=== PATIENT | female | born 1955 | race Caucasian/White ===

== ENCOUNTER 2018-02-01 05:35 | Day surgery (SDC) | payer BC ==
[~2018-02-01 05:35] MED LIST: Buffered Lidocaine 0.9% SYRIN* 5 ML/SYR SYRINGE INTRADERM ONE; Ondansetron TAB* 4 MG PO ONE
[2018-02-01] MEDS ORDERED: Naloxone* 0.4 MG/ML 1 ML VIAL IV PRN (05:45)
[2018-02-01] MEDS ORDERED: Morphine VIAL* 4 MG/ML VIAL (1 ml vial) IV PRN (05:45)
[2018-02-01] MEDS ORDERED: DiMENhydriNATE IV* 50 MG/ML VIAL IV PUSH PRN (05:45)
[2018-02-01] MEDS ORDERED: Levalbuterol 0.63MG/3ML NEB* UNIT OF USE INH PRN (05:45)
[2018-02-01] MEDS ORDERED: Acetaminophen IV 1GM/100ML * 1,000 MG/100 ML VIAL IVPB ONE (05:45)
[2018-02-01] MEDS ORDERED: PROCHLORPERAZINE INJ 5 MG/ML 2 ML VIAL IV PRN (05:45)
[2018-02-01] MEDS ORDERED: fentaNYL* 50 MCG/ML 2 ML VIAL (100 MCG VIAL) IV PRN (05:45)
[2018-02-01] MEDS ORDERED: Famotidine IV* 10 MG/ML 2 ML (20 mg) IV ONE (06:00)
[2018-02-01] MEDS ORDERED: Dexamethasone IV* 4 MG/ML 1 ML (4 MG) IV SLOW PU ONE (06:00)
[2018-02-01] MEDS ORDERED: Lactated Ringers 1000 ML Bag* 1,000 ML IV SCH (06:00)
[2018-02-01] MEDS ORDERED: Levalbuterol 0.63MG/3ML NEB* UNIT OF USE INH ONE ×2 (06:00→06:10)
[2018-02-01] MEDS ORDERED: Famotidine IV* 10 MG/ML 2 ML (20 mg) ONE (06:09)
[2018-02-01] MEDS ORDERED: Dexamethasone IV* 4 MG/ML 1 ML (4 MG) ONE (06:09)
[2018-02-01] MEDS ORDERED: Ondansetron ODT TAB* 4 MG ONE (06:09)
[2018-02-01] MEDS ORDERED: Acetaminophen IV 1GM/100ML * 100 ML ONE (06:10)
[2018-02-01] MEDS ORDERED: Lidocaine 1% INJ* 10 MG/ML 30 ML SDV ONE (07:01)
[2018-02-01] MEDS ORDERED: Bupivacaine 0.25% SDV PF* 10 ML VIAL INJ ONE (07:01)
[2018-02-01] MEDS ORDERED: fentaNYL* 50 MCG/ML 5 ML VIAL (250 MCG VIAL) ONE (07:16)
[2018-02-01] MEDS ORDERED: KETAMINE HCL* 50 MG/ML 10 ML VIAL ONE (07:17)
[2018-02-01] MEDS ORDERED: Midazolam* 1 MG/ML 5 ML VIAL (5 MG) ONE (07:17)
[2018-02-01] MEDS ORDERED: Atracurium* 10 MG/ML 10 ML VIAL ONE (07:17)
[2018-02-01] MEDS ORDERED: Propofol* 10 MG/ML 20 ML BTL ONE (07:57)
[2018-02-01] MEDS ORDERED: Lidocaine 2% PF * 5 ML VIAL ONE (07:57)
[2018-02-01] MEDS ORDERED: Succinylcholine* 20 MG/ML 10 ML VIAL ONE (07:57)
[2018-02-01] MEDS ORDERED: Phenylephrine INJ* 10 MG/ML 1 ML VIAL (10 MG) ONE (07:58)
[2018-02-01] MEDS ORDERED: Lidocaine 2% PF* 10 ML AMP ONE (07:58)
[2018-02-01] MEDS ORDERED: Morphine VIAL* 10 MG/ML 1 ML VIAL ONE (09:26)
[2018-02-01] MEDS ORDERED: PROCHLORPERAZINE INJ 5 MG/ML 2 ML VIAL ONE (09:28)
--- NOTE | 2018-02-01 14:46 | OP ---
OPERATIVE REPORT: DATE OF OPERATION: 02/01/18 - [facility] DATE OF : 53 SERVICE: General Surgery. SURGEON: Tamara Lr MD. HAND KISS SETTER: Lela Garcia MD. ANESTHESIOLOGIST: Dr. Hays. ANESTHESIA: General endotracheal anesthesia. PRE-OP DIAGNOSIS: Papillary thyroid cancer, left POST-OP DIAGNOSIS: Papillary thyroid carcinoma, left OPERATIVE PROCEDURE: Total thyroidectomy ESTIMATED BLOOD LOSS: 10 cc. INDICATIONS: Ms. Piña 62-year-old female with a history of hypothyroidism, who on routine ultrasound was found to have a suspicious appearing left thyroid nodule. This was biopsied and confirmed to be papillary thyroid carcinoma and therefore she presented for a total thyroidectomy. She understood the risks, benefits, and alternatives of the procedure and she wished to proceed. DESCRIPTION OF PROCEDURE: The patient was brought back to the operating room and placed on the operating table in supine position. Venodyne boots were placed in the bilateral lower extremities for DVT prophylaxis. General endotracheal anesthesia was induced. The patient's neck was extended into the sniffing position using a pressure bag underneath her shoulders and all pressure points were padded and her arms were rucked. Her neck was prepped and draped in normal sterile fashion. Local anesthesia with a mixture of 1% lidocaine and 0.25% Marcaine was administered to the neck and a time-out was performed, verifying the patient's name, MR number, and the procedure to be performed. The NIMs monitor was also connected for nerve monitoring. An approximately 4.5 cm midline neck incision was made 2 fingerbreadths above the sternal notch in a natural crease line in the neck. The skin was divided down to the subcutaneous tissue and then the platysmal was divided. Next, inferior and superior subplatysmal flaps were developed, and once this was done, a retractor was placed for exposure and the midline median raphe was identified and divided all the way down to the isthmus of the thyroid. Once this was done , the midline was opened up further using a LigaSure, and then once the isthmus was exposed, it was divided down the middle and flushed on the right side after dissecting it both superiorly and inferiorly. Once this was done, the left thyroid lobe, the side with the cancer, was approached. The thyroid lobe was rotated laterally. Attachments to the trachea medially were divided and then the strap muscles were retracted off of the thyroid lobe. The space lateral to the left thyroid lobe was developed, and then with great care the superior pole vessels were divided using 2-0 silk ties and LigaSure. Once this was done, the thyroid lobe was fairly mobile and able to be pulled up and out of the neck. The left recurrent laryngeal nerve was identified visually and also with nerve monitor. Its entire path was dissected out, and then after this was confirmed, the left thyroid lobe was removed off of the trachea using the LigaSure. The superior and inferior parathyroids were also identified on the left side. The thyroid lobe was then taken away in specimen with a stitch malcolm in the upper lobe. Next, attention was turned towards to the right thyroid lobe. In a similar fashion, the medial attachments to the trachea were divided and space of Reeve's was developed. Superior pole was taken down using a combination of LigaSure and 2-0 silk ties, and then once this was done, the thyroid lobe was pulled up and out. The middle thyroid vein was identified and divided. The right recurrent laryngeal nerve was also identified and it was dissected out. It was noted to be very close to the tubercle, and with great care, the tubercle and the thyroid was dissected off of the recurrent laryngeal nerve and off of the trachea, and it was carried off the table as specimen with stitch malcolm to the upper pole of the right thyroid lobe. Of note the left thyroid lobe was palpated and had the nodule with cancer in it. The superior and inferior parathyroid was also identified on the right side during the dissection. Finally, inspection of the right and left neck spaces after Valsalva noted that there was no bleeding and 10 cc of Tisseel was placed into the neck spaces. The strap muscles were reapproximated using 3-0 Vicryl sutures , the platysma was reapproximated using 3-0 Vicryl sutures, and the skin was closed using a running 4-0 Prolene suture. Sterile dressing was also placed and the patient's anesthesia was reversed, and she was taken to the PACU in stable condition. At the end of the case, all counts were correct and I was present during the entirety of the case. [id number]/[facility] #: [id number] MONIQUE
[2018-02-01 16:25] VITALS: BP 117/61
== END 2018-02-01 16:26 | disposition home or self-care (01) ==
LOC: OR 05:35
PROVIDERS: ATTEND Surgery
DX: C73 Malignant neoplasm of thyroid gland (principal); G47.33 Obstructive sleep apnea (adult) (pediatric); J45.909 Unspecified asthma, uncomplicated; Z87.891 Personal history of nicotine dependence; K21.9 Gastro-esophageal reflux disease without esophagitis; M19.90 Unspecified osteoarthritis, unspecified site; E03.9 Hypothyroidism, unspecified
CPT/HCPCS: 88307; A9270-GY; J0330; J0780; J1100; J2001; J2250; J2270; J2704; J3010; J3490

== ENCOUNTER 2018-04-25 05:29 | Day surgery (SDC) | payer BC ==
--- NOTE | 2018-04-16 03:22 | HP ---
HISTORY AND PHYSICAL: DATE OF ADMISSION/SURGERY: 04/25/18 DATE OF OFFICE VISIT: 04/15/18 SURGEON: Sue Watts MD * (DICTATED BY ARAVIND GALINDO) PROCEDURE: Left knee arthroscopy with partial meniscectomy, possible chondroplasty, possible synovectomy. CHIEF COMPLAINT: Left knee pain. HISTORY OF PRESENT ILLNESS: Ms. Piña is a 63-year-old female with complaints of left knee pain. An MRI confirms a meniscus tear and she has elected to proceed with surgery. PAST MEDICAL HISTORY: Hypothyroidism, history of thyroid cancer, asthma, GERD, and sleep apnea. PAST SURGICAL HISTORY: Thyroidectomy, tubal ligation, tonsillectomy, adenoidectomy, and D and C. CURRENT MEDICATIONS: 1. [place] 5/325 as needed. 2. Symbicort. 3. Xopenex as needed. 4. Omeprazole 20 mg a day as needed. 5. Vitamin D3. 6. Patanol eye drops. 7. Tramadol 50 mg as needed. 8. Progesterone 100 mg q.h.s. 9. Estradiol 0.25 mg daily. 10. Xyzal daily. 11. Flonase as needed. 12. Calcium. 13. Tylenol. 14. Multivitamin. 15. Flexeril 10 mg as needed. 16. Levothyroxine 137 mcg a day. ALLERGIES: IBUPROFEN. FAMILY HISTORY: Coronary artery disease, peripheral vascular disease, aortic aneurysm, emphysema, and AFib. SOCIAL HISTORY: She is a 63-year-old female. She lives with her . She does not smoke or use drugs. Uses alcohol rarely. REVIEW OF SYSTEMS: A complete 14-point review of systems was reviewed with the patient. It was positive for history of thyroid cancer with total thyroidectomy and asthma. She denies history of DVT, PE, hepatitis, HIV, or anesthesia problems. PHYSICAL EXAMINATION GENERAL: She is well developed, well nourished, in no acute distress. VITAL SIGNS: She stands 65 inches tall, weighs 207 pounds. Her blood pressure is 130/80, her heart rate is 76. HEENT: Normocephalic, atraumatic. NECK: Supple. No palpable lymph nodes. PULMONARY: The lungs are clear to auscultation bilaterally. CARDIO: Regular rate and rhythm. Strong S1, S2. ABDOMEN: Soft, nontender, nondistended. NEUROLOGICAL: She is alert and oriented x3. MUSCULOSKELETAL: Left lower extremity: The skin is intact. There are no open wounds or abrasions. There is a dlsv-av-tghjjaks joint effusion of the left knee, some tenderness over the medial and lateral joint line. Positive Martinez 's, positive Apley's. Negative Rafaela. Her calf is soft and nontender. She is able to dorsiflex and plantarflex and has a 2+ dorsalis pedis pulse. ASSESSMENT AND PLAN: Ms. Piña is a 63-year-old female with complaints of left knee pain. She has elected to proceed with left knee arthroscopy with partial meniscectomy, possible chondroplasty, possible synovectomy. The surgery is scheduled for 04/25/[address] Watts discussed the risks and benefits of the surgery at today's visit and all of her questions were answered. She will follow up with Dr. Watts in 2 weeks after the surgery. ARAVIND GALINDO [id number]/[facility] #: [id number] MTDD
[~2018-04-25 05:29] MED LIST changes: -Buffered Lidocaine 0.9% SYRIN* 5 ML/SYR SYRINGE INTRADERM ONE; +Buffered Lidocaine 1% SYRIN* 1 ML/SYRINGE INTRADERM ONE; -Ondansetron TAB* 4 MG PO ONE
[2018-04-25] MEDS ORDERED: Lactated Ringers 1000 ML Bag* 1,000 ML IV SCH (06:00)
[2018-04-25] MEDS ORDERED: ceFAZolin 2 GM in NS PREMIX(*) 2 GM/100 ML BAG IVPB ONE (06:02)
[2018-04-25] MEDS ORDERED: EPINEPHRINE 1 MG/ML 1 ML VIAL ONE (06:44)
[2018-04-25] MEDS ORDERED: ROPIVACAINE 5 MG/ML 30 ML BTL (0.5%) ONE (06:44)
[2018-04-25] MEDS ORDERED: methylPREDNISolone ACETATE 80* 80 MG/ML 1 ML VIAL ONE (06:44)
[2018-04-25] MEDS ORDERED: Lidocaine 2% PF * 5 ML VIAL ONE (06:54)
[2018-04-25] MEDS ORDERED: Propofol* 10 MG/ML 20 ML BTL ONE (06:54)
[2018-04-25] MEDS ORDERED: Midazolam* 1 MG/ML 2 ML VIAL (2 MG) ONE (07:09)
[2018-04-25] MEDS ORDERED: fentaNYL* 50 MCG/ML 2 ML VIAL (100 MCG VIAL) ONE ×2 (07:10→08:32)
[2018-04-25] MEDS ORDERED: Dexamethasone IV* 4 MG/ML 1 ML (4 MG) ONE (07:30)
[2018-04-25] MEDS ORDERED: Metoclopramide IV* 5 MG/ML 2 ML VIAL ONE (07:30)
[2018-04-25] MEDS ORDERED: Ondansetron INJ* 2 MG/ML VIAL ONE (07:30)
[2018-04-25] MEDS ORDERED: DiMENhydriNATE IV* 50 MG/ML VIAL IV PUSH PRN (07:42)
[2018-04-25] MEDS ORDERED: fentaNYL* 50 MCG/ML 2 ML VIAL (100 MCG VIAL) IV PRN (07:42)
[2018-04-25] MEDS ORDERED: Acetaminophen TAB* 325 MG PO PRN (07:42)
[2018-04-25] MEDS ORDERED: oxyCODONE TAB* 5 MG TAB PO PRN (07:42)
[2018-04-25] MEDS ORDERED: Naloxone* 0.4 MG/ML 1 ML VIAL IV PRN (07:42)
[2018-04-25] MEDS ORDERED: EPHEDrine (Pressors)* 50 MG/ML VIAL ONE (07:51)
[2018-04-25 10:04] VITALS: BP 128/78
--- NOTE | 2018-04-25 20:56 | OP ---
DATE OF OPERATION: 04/25/18 - [facility] DATE OF : 53 ATTENDING SURGEON: Sue Watts MD SILVICULTURE FORESTER: ARAVIND Morrison. Ms. Mistry did help throughout the procedure with preparation of the leg, wound retraction, manipulation of the knee, and wound closure. ANESTHESIOLOGIST: Dr. Roberts. ANESTHESIA: General. PRE-OP DIAGNOSIS: Left knee medial meniscal tear, mild to moderate degenerative changes. POST-OP DIAGNOSIS: Left knee medial meniscal tear, anterior synovitis, mild to moderate osteoarthritic changes. OPERATIVE PROCEDURE: Left knee arthroscopy with partial medial meniscectomy and anterior synovectomy. ESTIMATED BLOOD LOSS: Less than 25 cc. COMPLICATIONS: None. SPECIMENS: None. BRIEF HISTORY/INDICATIONS: Ms. Piña is a 63-year-old female who developed medial joint line pain and mechanical symptoms. She failed conservative treatment. An MRI confirmed the medial meniscal tear. She did have known arthritic changes. Due to continued pain and decreased quality of life, she elected to undergo left knee arthroscopy. Informed consent was obtained from the patient. She understood the risks of surgery included, but were not limited to, bleeding, infection, damage to nearby structures, continued pain, need for further surgery, re-tear of the meniscus, progression of arthritis, stroke, heart attack, blood clot, and . She wished to proceed. INTRAOPERATIVE FINDINGS: Intraoperatively, the patient was noted to have a linear tear of the medial meniscus in the white-red zone. This involved the posterior third of the medial meniscus. She was noted to have some grade 2 and 3 Outerbridge cartilage changes in the patellofemoral and medial compartment. She had a significant amount of anterior synovitis. DESCRIPTION OF PROCEDURE: Ms. Piña was identified in the preanesthesia unit. Her left lower extremity was marked as the correct operative side. Informed consent was signed and placed in the chart. The patient was taken to the operating room and placed under anesthesia. Left lower extremity was prepped and draped in the usual sterile fashion. Preop time-out was made to correctly identify the patient, side, and site. Appropriate perioperative antibiotics were given within 1 hour of incision. A one-half standard anterolateral portal incision was made with a 10 blade and carried down to the capsule. Trocar was introduced. As soon as the light and water sources were turned on, there was immediate visualization of the supra- patellar pouch. A tour of the knee joint was performed. Suprapatellar pouch had no obvious abnormality. Patellofemoral compartment showed some grade 2 and 3 Outerbridge cartilage changes. Medial compartment showed no loose body or plica. Anterior joint line had significant synovitis, which did impinge along the patellofemoral joint with range of motion. Medial compartment showed some grade 2 and 3 Outerbridge cartilage changes of the medial femoral condyle. There was an obvious medial meniscal tear with some displacement into the joint space along the posteromedial meniscus. ACL and PCL appeared to be intact. The knee was placed in a [id number] position. No obvious lateral meniscal tear was noted. Minimal lateral joint space degenerative changes were noted. Lateral gutters showed no abnormality or loose body. Under direct visualization, a medial portal incision was made with a 10 blade. A probe was introduced and a second tour of the knee joint was performed. No additional findings were noted. A shaver and radiofrequency ablation wand were used to perform anterior synovectomy. The inflamed tissue was carefully removed. Next, the shaver and straight biter were used to perform partial medial meniscectomy. A smooth border of the medial meniscus was obtained in the white-red zone. Further probing of the medial meniscus showed no additional tears. Radiofrequency ablation wand was used to further smooth the edge of the meniscus. The knee was copiously irrigated with sterile saline. All instruments were removed. Incisions were closed using 3-0 nylon suture. Intraarticular injection of 80 mg Depo-Medrol and 4 cc of 1% lidocaine was placed in the knee joint. Sterile Xeroform, 4x4s, and Webril were used to cover the incision. Henry wrap and cold pack were placed over this. The patient's anesthesia was reversed without difficulty. She was taken to the PACU in stable condition. Intended weightbearing will be weightbearing as tolerated with aspirin daily. [id number]/[facility] #: [id number] [facility]ITAL[facility]
== END 2018-04-25 10:00 | disposition home or self-care (01) ==
LOC: OR 05:29
PROVIDERS: ATTEND Orthopaedic Surgery Adult Reconstructive Orthopaedic Surgery
DX: S83.242A Other tear of medial meniscus, current injury, left knee, initial encounter (principal); M65.862 Other synovitis and tenosynovitis, left lower leg; M17.12 Unilateral primary osteoarthritis, left knee; J45.909 Unspecified asthma, uncomplicated; E03.9 Hypothyroidism, unspecified; X58.XXXA Exposure to other specified factors, initial encounter; Y92.9 Unspecified place or not applicable
CPT/HCPCS: J0690; J1040; J1100; J2250; J2405; J2704; J2765; J2795; J3010

== ENCOUNTER 2018-05-24 17:50 | Emergency (ER) | payer BC ==
--- OUTSIDE RECORDS SUMMARY | 2018-05-24 17:58 | XMS REPORT | Continuity of Care Document ---
:1955 External Reference #:[id number] Author Name Soren Koo Care Team Providers Name Role Phone Jelly Helms MD Primary Care Physician Unavailable Payers Date Identification Numbers Payment Provider Subscriber Effective: Policy Number: [id number] [employer] Edy Piña 2018 PayID: [id number] [address] [address] [place] [address] Effective: 2015 Policy Number: [id number] [employer] Edy Piña Expires: 2018 PayID: [id number] [address] [address] [place] [address] Effective: 2013 Policy Number: [id number] [employer] Marshall Piña PayID: [id number] [address] [address] [address] Expires: 2015 Policy Number: [id number] [employer] Ppo Edy Piña PayID: [id number] [address] [address] [place] [address] Effective: 2010 Policy Number: [id number] [employer] Edy Rafael Piña Expires: 2014 PayID: [id number] [address] [facility] [place] [address] Effective: 2012 Policy Number: [id number] [employer] Edy Piña Expires: 2013 PayID: [id number] [address] [address] [place] [address] Advance Directives Description No Information Available Problems Date Description Provider Status Onset: 08/04/2010 Pure hypercholesterolemia Collette Sindy, M.D., FACP Active Onset: 12/11/2011 Gastroesophageal reflux disease Rosa M Engel N.Christo Active Onset: 02/04/2014 Obstructive sleep apnea syndrome Jerrica Enriquez MD Active Onset: 02/04/2014 Allergic rhinitis Jerrica Enriquez MD Active Onset: 02/04/2014 Intrinsic asthma without status Jerrica Enriquez MD Active asthmaticus Onset: 08/31/2014 Obesity Jerrica Enriquez MD Active Onset: 01/21/2016 Mild persistent asthma Renata Miller.Christo Active Onset: 04/08/2018 Localized, primary osteoarthritis Sue Watts M.D. Active Onset: 04/15/2018 Current tear of medial cartilage Sue Watts M.D. Active AND/OR meniscus of knee Family History Date Family Member(s) Observation Comments General Heart Disease General Hypertension General Cancer General Atrial Fibrillation Father GERD Esophageal stricture, Heart valve disease, Cardiac aortic aneurysm, valve replacement Mother Depression Hx unknown Siblings 4 2 Sisters - 1 with pulmonary alveolar proteinosis, 1 with A Fib, PTSD, Depression and anxiety, OA hips sand Spine 2 Brothers - Healthy Several half siblings - One with HTN, DM (smoker), Depression Siblings sister does not have Ra but does have deformed hand joints Social History Type Date Description Comments Sex Unknown Marital Status 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 Smokeless Tobacco Never Used Smokeless Tobacco ETOH Use Rarely consumes alcohol Tobacco Use Start: Unknown End: Patient is a former started in 1969, Unknown smoker quit 1975 social smoker Recreational Drug Use Denies Drug Use Smoking Status Reviewed: 05/06/18 Patient is a former started in 1969, smoker quit 1975 social smoker Exercise Type/Frequency Exercises sporadically Allergies, Adverse Reactions, Alerts Date Description Reaction Status Severity Comments 12/03/2009 wheat Active 12/03/2009 Milk-related Compounds Active 12/03/2009 Yeast-related Active 04/08/2018 Ginko Biloba Active 04/08/2018 Ibuprofen Active Medications Medication Date Status Form Strength Qnty SIG Indications Ordering Provider Aspirin 04/[address] 325mg 28tab take 1 by s mouth twice Mac, a day for M.D. two weeks Spacer For 12/11 Active 2unit Use with J01.90 Rosa M Inhaler /2017 s inhaler Varn, N.P. Symbicort 11/22 Active Aerosol 160-4.5mc 18gm 2 puffs by J01.90 g/Act mouth twice Varn, N.P. a day Vitamin D3 High 01/14 Active Capsules 1000Unit 2 po qd Varn, N.P. Omeprazole 03/[address] 20mg 30cap Take one s capsule by Varn, N.P. mouth every day Patanol 12/11 Active Solution 0.1% 5unit instill one H10.30 s drop in Varn, N.P. both eyes once daily as needed for allergies Xopenex HFA 12/11 Active Aerosol 45mcg/Act 15uni inhale one J45.909 ts to two Varn, N.P. puffs by mouth every 4 hours as needed Estradiol Active Tablets 0.5mg 90tab pt taking Unknown / s 0.25----1 po qd Progesterone Active Oil 100mg 1 po hs Unknown / Tramadol HCL Active Tablets 50mg 120ta qid prn Unknown / bs Flexeril Active Tablets 10mg 30tab 1/2 -1 po Unknown / s tid prn Emergen-C Active Packet Unknown Vitamin C /0000 Multi Adult Active Chewtabs 2 by mouth Unknown Gummies /0000 every day Tylenol Extra Active Tablets 500mg 2 by mouth Unknown Strength /0000 as needed Levothyroxine Active Tablets 150mcg 1 by mouth Unknown Sodium / every Am Calcium Active Tablets 1 by mouth Unknown /0000 every day Flonase Allergy Active Suspension 50mcg/Act Unknown Relief 0000 Childrens Xyzal Allergy Active Tablets 5mg OTC Unknown 24HR / Hydrocodone-Henry 04/08 Hx Tablets 5-325mg 60tab 1 tabs by M25.562 Sue taminophen s mouth every Mac, - 4-6 hours M.D. 05/05 as needed for pain Levaquin 01/21 Hx Tablets 500mg 10tab 1 by mouth J01.90 s daily for Varn, N.P. - 10 days 01/31 Levaquin 12/11 Hx Tablets 500mg 10tab 1 by mouth J01.90 s daily for Varn, N.P. - 10 days 12/21 Fluconazole 12/11 Hx Tablets 150mg 3tabs one by J01.90 mouth every Varn, N.P. - 3 days for 12/17 3 doses /2017 Amoxicillin/Cla 11/22 Hx Tablets 875-125mg 20tab one tablet J01.90 s by mouth Varn, N.P. Potassium - twice daily 12/02 for 10 Azithromycin 05/03 Hx Tablets 250mg 6tabs two tabs day one, Varn, N.P. - one daily 05/13 till Medrol 05/03 Hx TBPK 4mg 21uni 6 by mouth ts day 1, 5 by Varn, N.P. - mouth day 05/09 2, 4 by mouth day 3, 3 by mouth day 4, 2 by mouth day 5, 1 by mouth day 6 Meclizine HCL 04/17 Hx Tablets 25mg 30tab 1 tablet H81.10 s every 8 Varn, N.P. - hours as 05/01 needed vertigo Fluconazole 09/23 Hx Tablets 150mg 2tabs one by B37.3 mouth, Varn, N.P. - repeat in 3 Clotrimazole/Be 09/23 Hx Cream 1-0.05% 15gm apply 2 - 3 B37.3 tamethasone times daily Varn, N.P. Dipropionate - until rash 01/20 Nystatin 09/23 Hx Powder 1unit Apply bid B37.3 Rosa M Domestic s until rash Varn, N.P. - clears 01/20 Levaquin 07/19 Hx Tablets 500mg 10tab 1 by mouth J01.00 s daily for Varn, N.P. - 10 days 07/29 Amoxicillin/Cla 07/08 Hx Tablets 875-125mg 20tab one tablet J01.20 anat s by mouth Varn, N.P. Potassium - twice daily 07/18 for 10 days Valacyclovir 01/15 Hx Tablets 500mg 42tab 2 tablets B02.9 Dick HCL s by mouth CARMEN Parker - three times 01/22 a day for days Flovent HFA 11/16 Hx Aerosol 110mcg/Ac 12gm 2 puffs J06.9 t twice daily Varn, N.P. - 11/30 Fluticasone 10/22 Hx Suspension 50mcg/Act 16uni 2 sprays Propionate ts each Varn, N.P. - nostril 01/31 daily needed Augmentin 08/20 Hx Tablets 875-125mg 20tab one by 461.9 s mouth every Varn, N.P. - 12 hours 08/30 for days Fluticasone 08/20 Hx Suspension 50mcg/Act 16uni 2 sprays 461.9 Propionate ts each Varn, N.P. - nostril 09/03 daily needed Fluconazole 08/20 Hx Tablets 150mg 3tabs one po q 3 461.9 days Varn, N.P. - starting 11/16 day 3 your antibiotic Advair Diskus 02/04 Hx Aerosol 250-50mcg 60uni 2 puffs J45.40 Jerrica /2013 /Dose ts twice a day MD Mina - 11/22 Multivitamins 01/14 Hx Capsules 30cap 1 capsule s lei;y Varn, N.P. - 05/30 Calcium 01/14 Hx Tablets 334-134-5 2 po qday Magnesium mg Varn, N.P. Zinc - 09/23 Valacyclovir 08/05 Hx Tablets 1gm 21tab take one 053.9 Collette HCL s three times Sindy, - a day prn M.Eleanor, FACP 01/14 Azithromycin 12/03 Hx Tablets 250mg 6tabs 2 tabs po 466.0 Jelly /2010 on day 1; 1 Cotton, - tab po qd M.D. 08/05 on days 2- Advair Diskus 07/13 Hx Aerosol 100-50mcg 60uni 1 inh bid /Dose Magdalena Hernandez M.D., FACP 12/11 Albuterol 07/06 Hx 1unit 2 puffs po Collette Inhal s qid prn Magdalena Callahan M.D., FACP 12/11 Azithromycin Hx 250mg 6unit 2 tabs po Collette / s day 1, then Sindy, - 1 tab po qd M.D., FACP 12/03 til Singulair Hx 10mg 30uni 1 po qd Collette / Magdalena Hernandez M.D., FACP 12/[address] 20mg 30cap Take One Collette s Capsule By Magdalena Callahan Mouth Every M.D., FACP /2012 Robaxin Hx Tablets 500mg 1-2 by Unknown /0000 mouth four - times a day 11/22 as needed /2017 Meloxicam Hx Tablets 7.5mg 1 by mouth Unknown /0000 twice day - 09/23 Ibuprofen Hx Tablets 200mg as needed Unknown /0000 - 01/31 Alive Womens Hx Tablets bid Unknown 50+ /0000 - 09/23 Medications Administered in Office Medication Date Status Form Strength Qnty SIG Indications Ordering Provider Depjulien Administered Injection Sue 40MG Samantha Watts M.D. Immunizations CPT Code Status Date Vaccine Reaction Lot # [id number] Given 10/23/2016 Influenza Virus Vaccine, Done at [facility] [place]. Quadrivalent, Split, Preservative Free [id number] Given 10/13/2014 Flu Vaccine NOS [id number] Given 01/19/2014 Tdap - Tetanus/Diptheria/Acellular [id number] Pertussis 13715 Given 12/12/2011 Pneumonia Vaccine [id number] Given 02/10/2009 Influenza Virus Vaccine, Pandemic Formulation 02161 Given 02/10/2009 Administration Swine Flu Shot Vital Signs Date Vital Result Comment 05/06/2018 9:03am Height 65 inches 5'5" Weight 196.00 lb BP Systolic 126 mmHg BP Diastolic 80 mmHg Body Temperature 97.6 F Pain Level 0 BMI (Body Mass Index) 32.6 kg/m2 05/01/2018 10:58am Height 65 inches 5'5" Weight 201.00 lb Heart Rate 78 /min BP Systolic Sitting 110 mmHg BP Diastolic Sitting 68 mmHg Body Temperature 98.3 F O2 % BldC Oximetry 97 % BMI (Body Mass Index) 33.4 kg/m2 04/15/2018 12:56pm Height 65 inches 5'5" Weight 207.00 lb BP Systolic 130 mmHg BP Diastolic 80 mmHg Pain Level 5 BMI (Body Mass Index) 34.4 kg/m2 04/08/2018 9:01am Height 65 inches 5'5" Weight 207.00 lb Heart Rate 92 /min BP Systolic 162 mmHg BP Diastolic 84 mmHg BMI (Body Mass Index) 34.4 kg/m2 04/01/2018 10:27am Height 64.75 inches 5'4.75" Weight 203.00 lb Heart Rate 88 /min BP Systolic Sitting 128 mmHg BP Diastolic Sitting 73 mmHg Body Temperature 97.8 F O2 % BldC Oximetry 96 % BMI (Body Mass Index) 34.0 kg/m2 03/14/2018 8:44am Heart Rate 72 /min Respiratory Rate 18 /min Body Temperature 98.4 F 02/28/2018 9:05am Height 64.75 inches 5'4.75" Weight 202.00 lb Heart Rate 79 /min BP Systolic 116 mmHg BP Diastolic 63 mmHg Body Temperature 97.6 F O2 % BldC Oximetry 99 % BMI (Body Mass Index) 33.9 kg/m2 2018 8:59am Heart Rate 72 /min BP Systolic 134 mmHg BP Diastolic 80 mmHg Respiratory Rate 16 /min Body Temperature 97.1 F 02/06/2018 3:20pm Heart Rate 74 /min Respiratory Rate 18 /min Body Temperature 98.3 F 01/21/2018 3:32pm Height 64 inches 5'4" Weight 200.00 lb with shoes Heart Rate 78 /min BP Systolic 130 mmHg BP Diastolic 66 mmHg Body Temperature 97.7 F O2 % BldC Oximetry 96 % BMI (Body Mass Index) 34.3 kg/m2 01/03/2018 12:38pm Height 64 inches 5'4" Weight 195.00 lb Heart Rate 62 /min BP Systolic 132 mmHg BP Diastolic 82 mmHg Respiratory Rate 16 /min Body Temperature 97.6 F BMI (Body Mass Index) 33.5 kg/m2 12/26/2017 10:05am Height 64.5 inches 5'4.50" Weight 196.00 lb Heart Rate 70 /min BP Systolic 117 mmHg BP Diastolic 64 mmHg Body Temperature 97.3 F O2 % BldC Oximetry 99 % BMI (Body Mass Index) 33.1 kg/m2 12/11/2017 11:44am Height 64.5 inches 5'4.50" Weight 197.00 lb Heart Rate 68 /min BP Systolic 123 mmHg BP Diastolic 71 mmHg Body Temperature 97.2 F O2 % BldC Oximetry 97 % BMI (Body Mass Index) 33.3 kg/m2 11/22/2017 8:51am Height 64.5 inches 5'4.50" Weight 198.00 lb Heart Rate 83 /min BP Systolic 122 mmHg BP Diastolic 76 mmHg Body Temperature 97.5 F O2 % BldC Oximetry 96 % BMI (Body Mass Index) 33.5 kg/m2 04/17/2017 11:36am Weight 195.00 lb Heart Rate 73 /min BP Systolic 134 mmHg BP Diastolic 76 mmHg Body Temperature 97.2 F O2 % BldC Oximetry 96 % 01/31/2017 8:26am Height 65 inches 5'5" Weight 196.25 lb Heart Rate 83 /min BP Systolic Sitting 118 mmHg BP Diastolic Sitting 62 mmHg Body Temperature 97.3 F O2 % BldC Oximetry 98 % BMI (Body Mass Index) 32.7 kg/m2 11/16/2016 11:41am Height 65 inches 5'5" Weight 199.00 lb Heart Rate 80 /min BP Systolic 120 mmHg BP Diastolic 70 mmHg Body Temperature 97.3 F O2 % BldC Oximetry 95 % BMI (Body Mass Index) 33.1 kg/m2 02/02/2016 3:55pm Height 65 inches 5'5" Weight 198.00 lb Heart Rate 79 /min BP Systolic 125 mmHg BP Diastolic 71 mmHg Respiratory Rate 19 /min Pain Level 7 BMI (Body Mass Index) 32.9 kg/m2 01/21/2016 9:13am Height 64.25 inches 5'4.25" Weight 198.00 lb Heart Rate 80 /min BP Systolic Sitting 112 mmHg BP Diastolic Sitting 68 mmHg O2 % BldC Oximetry 98 % BMI (Body Mass Index) 33.7 kg/m2 09/24/2015 10:26am Weight 192.50 lb Heart Rate 73 /min BP Systolic Sitting 112 mmHg BP Diastolic Sitting 63 mmHg O2 % BldC Oximetry 98 % 09/09/2015 8:07am Height 65 inches 5'5" Weight 190.00 lb reported Heart Rate 97 /min BP Systolic 114 mmHg BP Diastolic 72 mmHg Respiratory Rate 14 /min O2 % BldC Oximetry 97 % BMI (Body Mass Index) 31.6 kg/m2 07/20/2015 10:17am Weight 194.50 lb Heart Rate 70 /min BP Systolic Sitting 112 mmHg BP Diastolic Sitting 68 mmHg Body Temperature 98.2 F O2 % BldC Oximetry 98 % 07/09/2015 10:36am Weight 193.00 lb Heart Rate 70 /min BP Systolic Sitting 124 mmHg BP Diastolic Sitting 76 mmHg Respiratory Rate 15 /min Body Temperature 98.6 F O2 % BldC Oximetry 98 % 05/31/2015 1:19pm Height 64.5 inches 5'4.50" Weight 194.00 lb Heart Rate 72 /min BP Systolic Sitting 100 mmHg BP Diastolic Sitting 60 mmHg Respiratory Rate 14 /min Pain Level 3 BMI (Body Mass Index) 32.8 kg/m2 05/14/2015 9:14am Height 64.5 inches 5'4.50" Weight 199.00 lb Heart Rate 86 /min BP Systolic Sitting 128 mmHg BP Diastolic Sitting 80 mmHg Respiratory Rate 15 /min Body Temperature 98.5 F O2 % BldC Oximetry 98 % BMI (Body Mass Index) 33.6 kg/m2 03/31/2015 3:56pm Height 64.5 inches 5'4.50" Weight 199.00 lb Heart Rate 76 /min BP Systolic Sitting 140 mmHg BP Diastolic Sitting 72 mmHg Body Temperature 97.3 F Pain Level 4 BMI (Body Mass Index) 33.6 kg/m2 01/18/2015 10:36am Weight 199.00 lb Heart Rate 76 /min BP Systolic Sitting 122 mmHg BP Diastolic Sitting 76 mmHg Respiratory Rate 15 /min Body Temperature 98.6 F O2 % BldC Oximetry 98 % 01/15/2015 10:42am Weight 196.00 lb Heart Rate 70 /min BP Systolic Sitting 124 mmHg BP Diastolic Sitting 82 mmHg Respiratory Rate 15 /min Body Temperature 98.3 F O2 % BldC Oximetry 98 % 11/16/2014 1:10pm Weight 197.00 lb Heart Rate 79 /min BP Systolic Sitting 132 mmHg BP Diastolic Sitting 68 mmHg Body Temperature 98.0 F O2 % BldC Oximetry 97 % 08/31/2014 2:29pm Height 65 inches 5'5" Weight 198.00 lb Heart Rate 81 /min BP Systolic 128 mmHg BP Diastolic 70 mmHg Respiratory Rate 14 /min O2 % BldC Oximetry 97 % BMI (Body Mass Index) 32.9 kg/m2 08/20/2014 11:01am Weight 198.00 lb Heart Rate 88 /min BP Systolic Sitting 141 mmHg BP Diastolic Sitting 76 mmHg Body Temperature 97.4 F 04/06/2014 3:21pm Height 65 inches 5'5" Weight 194.00 lb Heart Rate 79 /min BP Systolic 127 mmHg BP Diastolic 65 mmHg Body Temperature 98.7 F BMI (Body Mass Index) 32.3 kg/m2 02/04/2014 11:10am Height 65 inches 5'5" Weight 192.00 lb Heart Rate 83 /min BP Systolic Sitting 118 mmHg BP Diastolic Sitting 74 mmHg Respiratory Rate 20 /min O2 % BldC Oximetry 98 % BMI (Body Mass Index) 31.9 kg/m2 01/16/2014 11:00am Height 65 inches 5'5" Weight 194.00 lb Heart Rate 82 /min BP Systolic 106 mmHg BP Diastolic 70 mmHg Body Temperature 97.8 F BMI (Body Mass Index) 32.3 kg/m2 06/16/2013 10:57am Heart Rate 80 /min BP Systolic Sitting 122 mmHg BP Diastolic Sitting 64 mmHg Body Temperature 97.5 F 01/14/2013 1:09pm Height 65 inches 5'5" Weight 181.00 lb Heart Rate 68 /min BP Systolic 152 mmHg BP Diastolic 70 mmHg BP Systolic Recheck 124 mmHg BP Diastolic Recheck 72 mmHg BMI (Body Mass Index) 30.1 kg/m2 12/12/2011 1:56pm Height 66 inches 5'6" Weight 190.00 lb Heart Rate 72 /min BP Systolic Sitting 126 mmHg BP Diastolic Sitting 60 mmHg BMI (Body Mass Index) 30.7 kg/m2 02/14/2011 11:30am Height 66 inches 5'6" Weight 187.00 lb Heart Rate 84 /min BP Systolic Sitting 112 mmHg BP Diastolic Sitting 56 mmHg Body Temperature 98.0 F Oral BMI (Body Mass Index) 30.2 kg/m2 08/05/2010 9:33am Height 66 inches 5'6" Weight 187.00 lb Heart Rate 72 /min BP Systolic Sitting 120 mmHg BP Diastolic Sitting 80 mmHg BMI (Body Mass Index) 30.2 kg/m2 12/03/2009 4:16pm Heart Rate 76 /min BP Systolic 132 mmHg BP Diastolic 70 mmHg Body Temperature 98.7 F Results Test Date Facility Test Result H/L Range Note Laboratory test 04/24/2018 [facility] TSH 0.14 mcIU/mL Low 0.34-5.[address] ([place] [address] Stim Horm) [phone] Free T4 (Free Thyroxine) 1.14 ng/dL High 0.61-1.12 2 T3 Total 99 ng/dL N 87-178 3 CBC Auto Diff 02/28/2018 [facility] White Blood 6.6 10^3/uL N 3.5-10.[address] [place] [address] [phone] Red Blood Count 4.50 10^6/uL N 4.00-5.40 Hemoglobin 12.3 g/dL N 12.0-16.0 Hematocrit 37 % N 35-47 Mean Corpuscular Volume 83 fL N 80-97 Mean Corpuscular Hemoglobin 27 pg N 27-31 Mean Corpuscular HGB Conc 33 g/dL N 31-36 Red Cell Distribution Width 15 % N 10.5-15 Platelet Count 318 10^3/uL N 150-450 Mean Platelet Volume 8.4 fL N 7.4-10.4 Abs Neutrophils 3.9 10^3/uL N 1.5-7.7 Abs Lymphocytes 2.2 10^3/uL N 1.0-4.8 Abs Monocytes 0.3 10^3/uL N 0-0.8 Abs Eosinophils 0.2 10^3/uL N 0-0.6 Abs Basophils 0 10^3/uL N 0-0.2 Abs Nucleated RBC 0 10^3/uL Granulocyte % 58.3 % Lymphocyte % 33.5 % Monocyte % 4.1 % Eosinophil % 3.4 % Basophil % 0.7 % Nucleated Red Blood Cells % 0.1 Laboratory test 02/28/2018 [facility] Ferritin 25.5 ng/mL N 11 -[address] [place] [address] [phone] Lipid Profile 02/22/2018 [facility] Triglycerides 132 mg/dL 4 (Trig/Chol/HDL) [address] [place] [address] [phone] Cholesterol 203 mg/dL 5 HDL Cholesterol 50.8 mg/dL 6 LDL Cholesterol 126 mg/dL 7 Comp Metabolic Panel 02/22/2018 [facility] Sodium 139 mmol/L N 135-[address] [place], [place] [id number] [phone] Potassium 4.3 mmol/L N 3.5-5.0 Chloride 104 mmol/L N 101-111 Co2 Carbon Dioxide 29 mmol/L N 22-32 Anion Gap 6 mmol/L N 2-11 Glucose 91 mg/dL N 70-100 Blood Urea Nitrogen 16 mg/dL N 6-24 Creatinine 0.77 mg/dL N 0.51-0.95 BUN/Creatinine Ratio 20.8 High 8-20 Calcium 9.8 mg/dL N 8.6-10.3 Total Protein 7.2 g/dL N 6.4-8.9 Albumin 4.1 g/dL N 3.2-5.2 Globulin 3.1 g/dL N 2-4 Albumin/Globulin Ratio 1.3 N 1-3 Total Bilirubin 0.50 mg/dL N 0.2-1.0 Alkaline Phosphatase 70 U/L N 34-104 Alt 17 U/L N 7-52 Ast 15 U/L N 13-39 Egfr Non- 75.5 >60 Egfr 91.3 >60 8 Laboratory 02/22/2018 [facility] TSH (Thyroid 0.43 N 0.34- 5.60 test finding [address] Stim Horm) mcIU/mL [place], [place] [id number] [phone] Laboratory 02/01/2018 [facility] Surgical SEE RESULT 9 test finding [address] [place] [address] [phone] Laboratory 01/31/2018 [facility] Tisseel 10ML SEE RESULTS 10, test finding [address] BELO <SEE [address] [place] [address] NOTE> [phone] Laboratory 12/26/2017 [facility] Surgical SEE RESULT 12, test finding [address] Pathology BELOW [address] [place], [place] [id number] [phone] Laboratory 10/24/2017 [facility] Blood Urea 15 mg/dL N 6-24 test finding [address] [place] [address] [phone] Creatinine 10/24/2017 [facility] Creatinine 0.76 mg/dL N 0.51- 0.[address] [place] [address] [phone] Egfr Non- 76.9 >60 Egfr 93.0 >60 14 Laboratory test 04/30/2017 [facility] Surgical SEE RESULT 15, [address] [place] [address] [phone] Iron & Iron 02/09/2017 [facility] Iron 46 g/dL Low 50-[address] [place] [address] [phone] Unsaturated Iron Binding 374 g/dL Total Iron Binding Capacity 420 g/dL N 250-450 % Iron Saturation 11 % Low 15-55 CBC Auto Diff 02/09/2017 [facility] White Blood 6.0 10^3/uL N 3.5-10.[address] [place] [address] [phone] Red Blood Count 4.51 10^6/uL N 4.0-5.4 Hemoglobin 12.4 g/dL N 12.0-16.0 Hematocrit 37 % N 35-47 Mean Corpuscular Volume 82 fL N 80-97 Mean Corpuscular Hemoglobin 28 pg N 27-31 Mean Corpuscular HGB Conc 34 g/dL N 31-36 Red Cell Distribution Width 15 % N 10.5-15 Platelet Count 283 10^3/uL N 150-450 Mean Platelet Volume 9 um3 N 7.4-10.4 Abs Neutrophils 3.4 10^3/uL N 1.5-7.7 Abs Lymphocytes 2.1 10^3/uL N 1.0-4.8 Abs Monocytes 0.3 10^3/uL N 0-0.8 Abs Eosinophils 0.2 10^3/uL N 0-0.6 Abs Basophils 0.1 10^3/uL N 0-0.2 Abs Nucleated RBC 0 10^3/uL Granulocyte % 56.7 % N 38-83 Lymphocyte % 34.9 % N 25-47 Monocyte % 4.5 % N 1-9 Eosinophil % 3.0 % N 0-6 Basophil % 0.9 % N 0-2 Nucleated Red Blood Cells % 0.1 Laboratory test 01/24/2017 [facility] TSH (Thyroid 1.22 mcIU/mL N 0.34-5.[address] [place]) [place] [address] [phone] Comp Metabolic 01/24/2017 [facility] Sodium 137 mmol/L N 133- 145 Panel [address] [place] [address] [phone] Potassium 4.4 mmol/L N 3.5-5.0 Chloride 106 mmol/L N 101-111 Co2 Carbon Dioxide 27 mmol/L N 22-32 Anion Gap 4 mmol/L N 2-11 Glucose 85 mg/dL N 70-100 Blood Urea Nitrogen 13 mg/dL N 6-24 Creatinine 0.79 mg/dL N 0.51-0.95 BUN/Creatinine Ratio 16.5 N 8-20 Calcium 9.6 mg/dL N 8.6-10.3 Total Protein 6.9 g/dL N 6.4-8.9 Albumin 4.1 g/dL N 3.2-5.2 Globulin 2.8 g/dL N 2-4 Albumin/Globulin Ratio 1.5 N 1-3 Total Bilirubin 0.50 mg/dL N 0.2-1.0 Alkaline Phosphatase 64 U/L N 34-104 Alt 10 U/L N 7-52 Ast 13 U/L N 13-39 Egfr Non- 73.7 >60 Egfr 94.8 >60 18 Lipid Profile 01/24/2017 [facility] Triglycerides 100 mg/dL 19 (Trig/Chol/HDL) [address] [place] [address] [phone] Cholesterol 174 mg/dL 20 HDL Cholesterol 42.9 mg/dL 21 LDL Cholesterol 111 mg/dL 22 Comp Metabolic Panel 01/13/2016 [facility] Sodium 136 mmol/L N 133-145 [address] [place] [address] [phone] Potassium 4.4 mmol/L N 3.5-5.0 Chloride 104 mmol/L N 101-111 Co2 Carbon Dioxide 28 mmol/L N 22-32 Anion Gap 4 mmol/L N 2-11 Glucose 86 mg/dL N 70-100 Blood Urea Nitrogen 15 mg/dL N 6-24 Creatinine 0.77 mg/dL N 0.51-0.95 BUN/Creatinine Ratio 19.5 N 8-20 Calcium 9.1 mg/dL N 8.6-10.3 Total Protein 6.9 g/dL N 6.4-8.9 Albumin 4.0 g/dL N 3.2-5.2 Globulin 2.9 g/dL N 2-4 Albumin/Globulin Ratio 1.4 N 1-3 Total Bilirubin 0.40 mg/dL N 0.2-1.0 Alkaline Phosphatase 62 U/L N 34-104 Alt 13 U/L N 7-52 Ast 16 U/L N 13-39 Egfr Non- 76.2 N >60 Egfr 98.0 N >60 23 Lipid Profile 01/13/2016 [facility] Triglycerides 110 mg/dL N 24 (Trig/Chol/HDL) [address] [place], [place] [id number] [phone] Cholesterol 178 mg/dL N 25 HDL Cholesterol 44.4 mg/dL N 26 LDL Cholesterol 112 mg/dL N 27 Laboratory 04/01/2015 [facility] Marylou Reflexed Abnormal Negative 28 test finding [address] ([place] [address] Antibodies) [phone] C Reactive Protein 3.66 mg/L N < 5.00 29 Cardiolipin 04/01/2015 [facility] Phospholipid Ab < 4.0 MPL N 30 Igg/Igm [address] IgM, [place] [address] [phone] Phospholipid Ab IgG < 4.0 GPL N 31 Laboratory test 04/01/2015 [facility] Complement C3 118 mg/dL N 75 - 175 [address] [place], [place] [address] [phone] Complement C4 24 mg/dL N 14 - 40 33 Anti Dna (Double Stranded Dna) Negative N Negative 34 Samina Screen Negative N Negative 35 Scleroderma AB (SCL70) <0.2 U N 36 Creatine Kinase(CK) 95 U/L N 10-223 37 Vitamin B12 417 pg/mL N 180-914 38 Vitamin D 1,25 04/01/2015 [facility] Vitamin D 29.7 ng/mL Low 30-50 39 And Vitamin D,[address] Total 25(Oh) [place] [address] [phone] Vitamin D, 1,25 Dihydroxy 70 pg/mL N 18-78 40 Marylou Hep-2 04/01/2015 [facility] Marylou Pattern Homogeneous N Negative [address] [place] [address] [phone] Marylou Titer 1:1280 N <1:80 Marylou Reviewed By MD Gómez Ayers <SEE NOTE> N 41 Lipid Profile 01/23/2015 [facility] Triglycerides 169 mg/dL N 42 (Trig/Chol/HDL) [address] [place] [address] [phone] Cholesterol 175 mg/dL N 43 HDL Cholesterol 41.7 mg/dL N 44 LDL Cholesterol 100 mg/dL N 45 Comp Metabolic Panel 01/23/2015 [facility] Sodium 136 mmol/L N 133-145 [address] [place] [address] [phone] Potassium 4.1 mmol/L N 3.5-5.0 Chloride 102 mmol/L N 101-111 Co2 Carbon Dioxide 29 mmol/L N 22-32 Anion Gap 5 mmol/L N 2-11 Glucose 99 mg/dL N 70-100 Blood Urea Nitrogen 12 mg/dL N 6-24 Creatinine 0.86 mg/dL N 0.51-0.95 BUN/Creatinine Ratio 14.0 N 8-20 Calcium 9.3 mg/dL N 8.6-10.3 Total Protein 7.0 g/dL N 6.4-8.9 Albumin 4.3 g/dL N 3.2-5.2 Globulin 2.7 g/dL N 2-4 Albumin/Globulin Ratio 1.6 N 1-3 Total Bilirubin 0.30 mg/dL N 0.2-1.0 Alkaline Phosphatase 72 U/L N 34-104 Alt 22 U/L N 7-52 Ast 19 U/L N 13-39 Egfr Non- 67.3 N >60 Egfr 86.6 N >60 46 Lipid Profile 01/20/2014 [facility] Triglycerides 188 mg/dL N 47, 48 (Trig/Chol/HDL) [address] [place] [address] [phone] Cholesterol 163 mg/dL N 49 HDL Cholesterol 37.9 mg/dL N 50 LDL Cholesterol 88 mg/dL N 51 Comp Metabolic Panel 01/20/2014 [facility] Sodium 137 mmol/L N 133-[address] [place] [address] [phone] Potassium 3.8 mmol/L N 3.5-5.0 Chloride 105 mmol/L N 101-111 Co2 Carbon Dioxide 27 mmol/L N 22-32 Anion Gap 5 mmol/L N 2-11 Glucose 92 mg/dL N 70-100 Blood Urea Nitrogen 16 mg/dL N 6-24 Creatinine 0.72 mg/dL N 0.51-0.95 BUN/Creatinine Ratio 22.2 High 8-20 Calcium 8.7 mg/dL N 8.6-10.3 Total Protein 6.8 g/dL N 6.4-8.9 Albumin 4.0 g/dL N 3.2-5.2 Globulin 2.8 g/dL N 2-4 Albumin/Globulin Ratio 1.4 N 1-3 Total Bilirubin 0.50 mg/dL N 0.2-1.0 Alkaline Phosphatase 54 U/L N 34-104 Alt 17 U/L N 7-52 Ast 16 U/L N 13-39 Egfr Non- 82.9 N >60 Egfr 106.6 N >60 52 CBC With 07/17/2013 [facility] White Blood 6.5 10^3/uL N 4.8- 10.8 Manual Diff [address] [place] [address] [phone] Red Blood Count 4.34 10^6/uL N 4.0-5.4 Hemoglobin 12.2 g/dL N 12.0-16.0 Hematocrit 35 % N 35-47 Mean Corpuscular Volume 81 fL N 80-97 Mean Corpuscular Hemoglobin 28 pg N 27-31 Mean Corpuscular HGB Conc 35 g/dL N 31-36 Red Cell Distribution Width 15 % N 10.5-15 Platelet Count 278 10^3/uL N 150-450 Mean Platelet Volume 8 um3 N 7.4-10.4 Abs Neutrophils 3.9 10^3/uL N 1.5-7.7 Abs Lymphocytes 2.1 10^3/uL N 1.0-4.8 Abs Monocytes 0.3 10^3/uL N 0-0.8 Abs Eosinophils 0.2 10^3/uL N 0-0.6 Abs Basophils 0 10^3/uL N 0-0.2 Abs Nucleated RBC 0.01 10^3/uL N Neutrophil % 69 % N 38-83 Lymphocytes % 27 % N 25-47 Monocytes % 1 % N 0-13 Eosinophils % 3 % N 0-6 RBC Morphology Normal N Normal Comp Metabolic Panel 06/16/2013 [facility] Sodium 137 mmol/L N 133-[address] [place] [address] [phone] Potassium 4.1 mmol/L N 3.7-5.6 Chloride 106 mmol/L N 101-111 Co2 Carbon Dioxide 26 mmol/L N 22-32 Anion Gap 5 mmol/L N 2-11 Glucose 89 mg/dL N 70-100 Blood Urea Nitrogen 15 mg/dL N 6-24 Creatinine 0.78 mg/dL N 0.51-0.95 BUN/Creatinine Ratio 19.2 N 8-20 Calcium 9.4 mg/dL N 8.6-10.3 Total Protein 7.1 g/dL N 6.4-8.9 Albumin 4.2 g/dL N 3.2-5.2 Globulin 2.9 g/dL N 2-4 Albumin/Globulin Ratio 1.4 N 1-3 Total Bilirubin 0.40 mg/dL N 0.2-1.0 Alkaline Phosphatase 57 U/L N 34-104 Alt 16 U/L N 7-52 Ast 16 U/L N 13-39 Egfr Non- 75.6 N >60 Egfr 97.2 N >60 53 CBC Auto Diff 06/16/2013 [facility] White Blood 7.4 10^3/uL N 4.8-10.[address] [place] [address] [phone] Red Blood Count 4.27 10^6/uL N 4.0-5.4 Hemoglobin 11.7 g/dL Low 12.0-16.0 Hematocrit 35 % N 35-47 Mean Corpuscular Volume 82 fL N 80-97 Mean Corpuscular Hemoglobin 27 pg N 27-31 Mean Corpuscular HGB Conc 34 g/dL N 31-36 Red Cell Distribution Width 15 % N 10.5-15 Platelet Count 301 10^3/uL N 150-450 Mean Platelet Volume 9 um3 N 7.4-10.4 Abs Neutrophils 4.9 10^3/uL N 1.5-7.7 Abs Lymphocytes 1.9 10^3/uL N 1.0-4.8 Abs Monocytes 0.3 10^3/uL N 0-0.8 Abs Eosinophils 0.2 10^3/uL N 0-0.6 Abs Basophils 0 10^3/uL N 0-0.2 Abs Nucleated RBC 0 10^3/uL N Granulocyte % 66.8 % N 38-83 Lymphocyte % 25.3 % N 25-47 Monocyte % 4.4 % N 1-9 Eosinophil % 2.8 % N 0-6 Basophil % 0.7 % N 0-2 Nucleated Red Blood Cells % 0 N Laboratory test 06/16/2013 [facility] TSH (Thyroid 2.83 IU/mL N 0.34-5.[address] [place] [address] Horm) [phone] Ferritin 14.8 ng/mL N 11-307 Comp Metabolic Panel 01/16/2013 [facility] Sodium 137 mmol/L 133-[address] [place] [address] [phone] Potassium 4.3 mmol/L 3.5-5.0 Chloride 104 mmol/L 101-111 Co2 Carbon Dioxide 28.0 mmol/L 22-32 Anion Gap 5.0 mmol/L 2-11 Glucose 100 mg/dL 70-100 Blood Urea Nitrogen 15 mg/dL 6-24 Creatinine 0.80 mg/dL 0.50-1.40 BUN/Creatinine Ratio 18.8 8-20 Calcium 9.5 mg/dL 8.1-9.9 Total Protein 7.4 g/dL 6.2-8.1 Albumin 4.1 g/dL 3.6-5.4 Globulin 3.3 g/dL 2-4 Albumin/Globulin Ratio 1.2 1-3 Total Bilirubin 0.8 mg/dL 0.4-1.5 Alkaline Phosphatase 61 U/L 30-110 Alt 18 U/L 14-54 Ast 18 U/L 12-42 Egfr Non- 73.7 >60 Egfr 94.7 >60 54 Lipid Profile 01/16/2013 [facility] Triglycerides 83 mg/dL 40 -200 (Trig/Chol/HDL) [address] [place] [address] [phone] Cholesterol 168 mg/dL Less than 200 HDL Cholesterol 42 mg/dL 40-60 55 Cholesterol/HDL Ratio 4.0 Average 1-4.44 LDL Cholesterol 109.4 High Less Than 100 56 Laboratory 01/16/2013 [facility] Hepatitis C Nonreactive Nonreactive 57 test finding [address] [place] [address] [phone] Laboratory 03/28/2012 [facility] Rubeola Positive 58 test finding [address] (Measles) [place] [address] IgG Antibody [phone] Mumps Igg 03/28/2012 [facility] Mumps Virus Positive [address] [place] [address] [phone] Mumps IgG Antibody Index 7.36 0.00-0.89 60 Laboratory test 03/12/2012 [facility] Rubella IgG Positive [address] [place] [address] [phone] Laboratory test 03/12/2012 [facility] Varicella-Zost Positive [address] [place] [address] Antibody [phone] Surgical 01/01/2012 [facility] S RUN DATE: [address] 01/02/ <[place] [address] NOTE> [phone] Comp Metabolic 12/13/2011 [facility] Sodium 138 mmol/L 133-[address] [place] [address] [phone] Potassium 4.9 mmol/L 3.5-5.0 Chloride 107 mmol/L 101-111 Co2 Carbon Dioxide 29.0 mmol/L 22-32 Anion Gap 2.0 mmol/L 2-11 Glucose 93 mg/dL 70-100 Blood Urea Nitrogen 13 mg/dL 6-24 Creatinine 0.80 mg/dL 0.50-1.40 BUN/Creatinine Ratio 16.3 8-20 Calcium 9.6 mg/dL 8.1-9.9 Total Protein 6.9 GM/DL 6.2-8.1 Albumin 4.1 GM/DL 3.6-5.4 Globulin 2.8 GM/DL 2-4 Albumin/Globulin Ratio 1.5 1-3 Total Bilirubin 0.8 mg/dL 0.1-1.0 64 Alkaline Phosphatase 67 U/L 30-110 Alt 19 U/L 14-54 Ast 19 U/L 12-42 Egfr Non- 73.9 >60 Egfr 95.1 >60 65 Lipid Profile 12/13/2011 [facility] Triglycerides 118 mg/dL 40-200 (Trig/Chol/HDL) [address] [place] [address] [phone] Cholesterol 187 mg/dL Less than 200 66 HDL Cholesterol 47 mg/dL 40-60 67 Cholesterol/HDL Ratio 4.0 AVERAGE 1-4.44 LDL Cholesterol 116.4 mg/dL High Less Than 100 68 Laboratory 12/13/2011 [facility] TSH (Thyroid 2.57 MIU/ML 0.34-5.60 69 test finding [address] [facility] [place] [place] [address] Horm) [phone] Hepatitis B 12/13/2011 [facility] Hepatitis B Reactive Nonreactive Angela AB Titer [address] [facility] [place] [address] [phone] Hep B Surf AB Index 1.52 70 Ua Routine 12/12/2011 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 In House Ua Specific [place] 1.005 Ua PH 6 Ua Color yellow Ua Appera clear Ua WBC neg Ua Protein neg Ua Glucose neg Ua Ketones neg Ua Bilirubin neg Ua Urobilinogen neg Ua Nitrite neg Ua Occult Blood non hemo trace Creatinine 12/04/2011 [facility] Creatinine 0.70 mg/dL 0.50- 1.40 [address] [place] [address] [phone] Egfr Non- 86.2 >60 Egfr 110.9 >60 71 Laboratory test 12/04/2011 [facility] Blood Urea 7 mg/dL 6- 24 finding 101 [facility] [place] [address] [phone] Laboratory test 02/14/2011 [facility] Erythrocyte Sed 17 MM/HR 0-30 finding [address] [facility] [place] [address] [phone] Urinalysis 09/04/2007 [facility] Ua Color YELLOW 72 W/Microscopic [address] [place] [address] [phone] Appearance-Urine CLEAR Specific [place]-Ur 1.010 1.010-1.030 Esterase-Urine NEGATIVE Negative Nitrite NEGATIVE Negative [id number] NEGATIVE Negative Protein-Urine NEGATIVE Negative PH-Urine 7.0 5-9 Blood-Urine TRACE Abnormal Negative Ketones-Urine NEGATIVE Negative Bilirubin-Ur NEGATIVE Negative Glucose-Urine NEGATIVE Negative WBC-Urine RARE 0-5 RBC-Urine 1-3 0-2 Epith Cells-Ur MANY CBC With 09/04/2007 [facility] White Blood 6.0 CUMM 4.8-10.8 Electronic Diff [address] [place] [address] [phone] Red Cell Count 4.42 CUMM 4.2-5.4 Hemoglobin 12.4 g/dL 12.0-16.0 Hematocrit 36 % 35-47 Mean Corpuscular Volume 81 um3 79-97 Mean Corpuscular Hemoglob 28 pg 27-31 Mean Corpuscular HGB Cone 35 g/dL 32-36 Redcell Distribution WDTH 15 % 10.5-15 Platelet Count 309 CUMM 150-450 Mean Platelet Volume 8.4 um3 7.4-10.4 Gran % 59.5 % 38-83 Lymph % 32.1 % 20-45 Mononuclear % 5.8 % 1-9 Eosinophil % 2.2 % 0-6 Basophil % 0.4 % 0-2 Abs Lymphs 1.9 1.0-4.8 Abs Mononuclear 0.3 0-0.8 Absolute Neutrophil Count 3.6 1.5-7.7 Abs Eosinophils 0.1 0-0.6 Abs Basophils 0 0-0.2 Urinalysis 09/04/2007 [facility] Ua Color YELLOW [address] [place] [address] [phone] Appearance-Urine CLEAR Specific [place]-Ur 1.010 1.010-1.030 Esterase-Urine NEGATIVE Negative Nitrite NEGATIVE Negative [id number]-[id number] NEGATIVE Negative Protein-Urine NEGATIVE Negative PH-Urine 7.0 5-9 Blood-Urine TRACE Abnormal Negative Ketones-Urine NEGATIVE Negative Bilirubin-Ur NEGATIVE Negative Glucose-Urine NEGATIVE Negative 1 ORDERED: 02/06/18 : 08/06/18 STANDING ORDER 2 ORDERED: 02/06/18 : 08/06/18 STANDING ORDER 3 ORDERED: 02/06/18 : 08/06/18 STANDING ORDER 4 Desirable: <150 Borderline High: 150-199 High: 200-499 Very High: >500 5 Desirable: <200 Borderline High: 200-239 High: >239 6 Low: <40 Desirable: 40-60 High: >60 7 Desirable: <100 Near Optimal: 100-129 Borderline High: 130-159 High: 160-189 Very High: >189 8 Because ethnic data is not always readily available, this report includes an eGFR for both -Americans and non- Americans. The National Kidney Disease Education Program (NKDEP) does not endorse the use of the MDRD equation for patients that are not between the ages of 18 and 70, are , have extremes of body size, muscle mass, or nutritional status, or are non- or non-. According to the National Kidney Foundation, irrespective of diagnosis, the stage of the disease is based on the level of kidney function: Stage Description GFR(mL/min/1.73 m(2)) 1 Kidney damage with normal or decreased GFR 90 2 Kidney damage with mild decrease in GFR 60-89 3 Moderate decrease in GFR 30-59 4 Severe decrease in GFR 15-29 5 Kidney failure <15 (or dialysis) 9 SEE RESULT BELOW Name: EDY PIÑA : [address]: Tamara Lr MD Acct: [id number] Unit: [id number] AGE: 62 Location: OR Re02/01/18 SEX: F Status: [facility] SPEC: [id number] MAE: 02/01/18-[address] [facility] [address]: Tamara Lr MD REQ: [id number] RECD: 02/01/18-1203 STATUS: SOUT _ ORDERED: LEVEL 5/2 FINAL DIAGNOSIS 1. Thyroid, left, hemithyroidectomy: -- Papillary thyroid carcinoma, with: Size: largest focus 1.4 x 0.8 x 0.7 cm. Local extent: Confined to thyroid. Margins: Negative. Multicentricity: Present. Lymphovascular invasion: Not identified. Other findings: Lymphocytic thyroiditis; two benign lymph nodes (0/2). pTNM histopathologic stage: pT1b(m) N0 M N/A. 2. Thyroid, right, hemithyroidectomy: -- Papillary thyroid carcinoma, with: Size: largest focus 0.4 cm. Local extent: Confined to thyroid. Margins: Negative. Multicentricity: Present. Lymphovascular invasion: Not identified. Other findings: Lymphocytic thyroiditis; one benign lymph node (0/1). pTNM histopathologic stage: see part 1. PRE-OPERATIVE DIAGNOSIS Malignant neoplasm of thyroid gland, 1-2) suture upper pole CONTINUED ON NEXT PAGE DEPARTMENT OF PATHOLOGY, [address] [place] [address] Gómez Pettit M.D. Director [facility] # [id number] RUN DATE: 02/04/18 [facility] LAB LIVE PAGE 2 Patient: EDY PIÑA [id number] (Continued) GROSS DESCRIPTION (Continued) GROSS DESCRIPTION 1. The specimen is received in formalin labeled, Left Thyroid Lobe, Suture Soni Upper Pole, and consists of an 8 g, 4.2 x 3.0 x 1.3 cm thyroid lobe with an attached suture which designates the upper pole. The capsule is smooth to shaggy graham-red with mild focal cauterization. There is a 1.4 x 0.8 x 0.7 cm graham-red friable nodule within the superior lobe which abuts the inked capsule. Additionally, there are two graham-white well-defined foci in the superior lobe measuring 0.3 x 0.2 x 0.2 cm and 0.4 x 0.4 x 0.3 cm. The remaining cut surface is diffusely nodular graham-pink. Received separately in the same container is a 0.9 x 0.6 x 0.5 cm graham-pink irregular soft tissue fragment. The specimen is inked , serially sectioned from superior to inferior and entirely submitted in cassettes A through H to include friable nodule in cassettes A through C, white foci in cassette B, and separately received tissue in cassette H. 2. The specimen is received in formalin labeled, Right Thyroid Lobe, Suture Soni Upper Pole, and consists of a 6 g, 4.7 x 2.4 by up to 1.5 cm thyroid lobe with an attached suture which designates the upper pole. The capsule is smooth to shaggy to focally nodular graham-red with a small amount of focal cauterization. There is a 0.4 x 0.3 x 0.2 cm graham-white calcified lesion within the superior lobe, 0.1 cm from the inked capsule. Additionally there is a 1.0 x 0.5 x 0.4 cm translucent yellow colloidal nodule inferior to the calcified lesion, less than 0.1 cm from the inked capsule. The remaining cut surface is diffusely nodular graham-pink with two graham-white well-defined foci inferior to the colloidal nodule measuring 0.2 x 0.2 x 0.2 cm and 0.4 x 0.3 x 0.3 cm. The specimen is inked, serially sectioned from superior to inferior and entirely submitted in cassettes A through F to include calcified lesion in cassette A, colloidal nodule in cassette B and well-defined foci in cassettes B and C. Signed by and Reported on: Nina Girard MD 02/04/18 1332 END OF REPORT DEPARTMENT OF PATHOLOGY, [address] [place] [address] Gómez Pettit M.D. Director [facility] # [id number] 10 MALIGNANT NEOPLASM OF THYROID GLAND 11 SEE RESULTS BELOW [id number] TISSEEL 10ML TRANSFUSED 02/01/18 0708 12 [id number] 13 SEE RESULT BELOW Name: EDY PIÑA : [address]: Rosa M Engel NP Acct: [id number] Unit: [id number] AGE: 62 Location: [facility] Re12/26/17 SEX: F Status: REG REF SPEC: [id number] MAE: 12/26/17-[address]: Rosa M Engel NP REQ: [id number] RECD: 12/26/17 STATUS: SOUT _ ORDERED: LEVEL 4 COMMENTS: [id number] FINAL DIAGNOSIS Uterus, endometrium, biopsy: -- Atrophic endometrial mucosa. -- No evidence of hyperplasia or malignancy. PRE-OPERATIVE DIAGNOSIS Endometrial biopsy GROSS DESCRIPTION The specimen is received in formalin labeled, Endometrial Biopsy, and consists of a 1.6 x 1.5 x 0.4 cm aggregate of translucent graham-white to slightly blood-tinged mucus which is submitted entirely in one cassette. Signed by and Reported on: Nina Girard MD 01/01/18 0959 END OF REPORT DEPARTMENT OF PATHOLOGY, [address] [place] [address] Gómez Pettit M.D. Director [facility] # [id number] 14 Because ethnic data is not always readily available, this report includes an eGFR for both -Americans and non- Americans. The National Kidney Disease Education Program (NKDEP) does not endorse the use of the MDRD equation for patients that are not between the ages of 18 and 70, are , have extremes of body size, muscle mass, or nutritional status, or are non- or non-. According to the National Kidney Foundation, irrespective of diagnosis, the stage of the disease is based on the level of kidney function: Stage Description GFR(mL/min/1.73 m(2)) 1 Kidney damage with normal or decreased GFR 90 2 Kidney damage with mild decrease in GFR 60-89 3 Moderate decrease in GFR 30-59 4 Severe decrease in GFR 15-29 5 Kidney failure <15 (or dialysis) 15 [id number] 16 SEE RESULT BELOW Name: EDY PIÑA : [address]: Rosa M Engle NP Acct: [id number] Unit: [id number] AGE: 62 Location: [facility] Re04/30/17 SEX: F Status: REG REF SPEC: [id number] MAE: 04/30/17-[address] [facility] [address]: Chito Fierro MD REQ: [id number] RECD: 04/30/17-5 STATUS: OLIVIA BORDEN 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 -- No evidence of invasive or in situ carcinoma. COMMENT: Clinical and radiologic correlation is recommended. CLINICAL HISTORY Calcifications in specimen PRE-OPERATIVE DIAGNOSIS Right breast calcifications GROSS DESCRIPTION The specimen is received in formalin labeled, Right Breast Stereotactic Biopsy, Calcifications, and consists of a 2.6 x 2.2 x 0.4 cm aggregate of yellow- pink irregular fibrofatty soft tissue fragments which is entirely submitted in two cassettes. Signed (signature on file) Nina Girard MD 0948 END OF REPORT DEPARTMENT OF PATHOLOGY, [address] [place] [address] Gómez Pettit M.D. Director [facility] # [id number] 17 FASTING 10 HOUR 18 Because ethnic data is not always readily available, this report includes an eGFR for both -Americans and non- Americans. The National Kidney Disease Education Program (NKDEP) does not endorse the use of the MDRD equation for patients that are not between the ages of 18 and 70, are , have extremes of body size, muscle mass, or nutritional status, or are non- or non-. According to the National Kidney Foundation, irrespective of diagnosis, the stage of the disease is based on the level of kidney function: Stage Description GFR(mL/min/1.73 m(2)) 1 Kidney damage with normal or decreased GFR 90 2 Kidney damage with mild decrease in GFR 60-89 3 Moderate decrease in GFR 30-59 4 Severe decrease in GFR 15-29 5 Kidney failure <15 (or dialysis) 19 Desirable: <150 Borderline High: 150-199 High: 200-499 Very High: >500 20 Desirable: <200 Borderline High: 200-239 High: >239 21 Low: <40 Desirable: 40-60 High: >60 22 Desirable: <100 Near Optimal: 100-129 Borderline High: 130-159 High: 160-189 Very High: >189 23 Because ethnic data is not always readily available, this report includes an eGFR for both -Americans and non- Americans. The National Kidney Disease Education Program (NKDEP) does not endorse the use of the MDRD equation for patients that are not between the ages of 18 and 70, are , have extremes of body size, muscle mass, or nutritional status, or are non- or non-. According to the National Kidney Foundation, irrespective of diagnosis, the stage of the disease is based on the level of kidney function: Stage Description GFR(mL/min/1.73 m(2)) 1 Kidney damage with normal or decreased GFR 90 2 Kidney damage with mild decrease in GFR 60-89 3 Moderate decrease in GFR 30-59 4 Severe decrease in GFR 15-29 5 Kidney failure <15 (or dialysis) 24 Desirable <150 Borderline high 150-199 High 200-499 Very High >500 25 Desirable <200 Borderline high 200-239 High >239 26 Low <40 Desirable: 40-60 High: >60 27 Desirable: <100 mg/dL Near Optimal: 100-129 mg/dL Borderline High: 130-159 mg/dL High: 160-189 mg/dL Very High: >189 mg/dL 28 this week 29 Acute inflammation: >10.00 30 REFERENCE VALUE <10.0 (Negative) 31 REFERENCE VALUE <10.0 (Negative) Test Performed by: [place] [address] Vice President Industrial Relations: Sebsatian Ward II, M.D., Ph.D. 32 Test Performed by: [place] [address] Vice President Industrial Relations: Sebatsian Ward II, M.D., Ph.D. 33 Test Performed by: [place] [address] Vice President Industrial Relations: Sebastian Ward II, M.D., Ph.D. 34 this week 35 The above SAMINA screen is designed for the detection of antibodies to extractable nuclear antigen (SAMINA) in human serum. It is a combination test for the detection of antibodies to WORM RAISER, Sm, SS-A (Ro), and SS-B (La) nuclear antigens. 36 REFERENCE VALUE <1.0 (Negative) Test Performed by: [place] [address] Vice President Industrial Relations: Sebastian Ward II, M.D., Ph.D. 37 this week 38 Normal Range 180 to 914 Indeterminate Range 145 to 180 Deficient Range <145 39 this week 40 Test Performed by: [place] [address] Vice President Industrial Relations: Sebastian Ward II, M.D., Ph.D. 41 Gómez Pettit 42 Desirable <150 Borderline high 150-199 High 200-499 Very High >500 43 Desirable <200 Borderline high 200-239 High >239 44 Low <40 Desirable: 40-60 High: >60 45 Desirable: <100 mg/dL Near Optimal: 100-129 mg/dL Borderline High: 130-159 mg/dL High: 160-189 mg/dL Very High: >189 mg/dL 46 Because ethnic data is not always readily available, this report includes an eGFR for both -Americans and non- Americans. The National Kidney Disease Education Program (NKDEP) does not endorse the use of the MDRD equation for patients that are not between the ages of 18 and 70, are , have extremes of body size, muscle mass, or nutritional status, or are non- or non-. According to the National Kidney Foundation, irrespective of diagnosis, the stage of the disease is based on the level of kidney function: Stage Description GFR(mL/min/1.73 m(2)) 1 Kidney damage with normal or decreased GFR 90 2 Kidney damage with mild decrease in GFR 60-89 3 Moderate decrease in GFR 30-59 4 Severe decrease in GFR 15-29 5 Kidney failure <15 (or dialysis) 47 FASTING 10 HOUR 48 Desirable <150 Borderline high 150-199 High 200-499 Very High >500 49 Desirable <200 Borderline high 200-239 High >239 50 Low <40 Desirable: 40-60 High: >60 51 Desirable <100 Near Optimal 100-129 Borderline high 130-159 High 160-189 Very High >189 52 Because ethnic data is not always readily available, this report includes an eGFR for both -Americans and non- Americans. The National Kidney Disease Education Program (NKDEP) does not endorse the use of the MDRD equation for patients that are not between the ages of 18 and 70, are , have extremes of body size, muscle mass, or nutritional status, or are non- or non-. According to the National Kidney Foundation, irrespective of diagnosis, the stage of the disease is based on the level of kidney function: Stage Description GFR(mL/min/1.73 m(2)) 1 Kidney damage with normal or decreased GFR 90 2 Kidney damage with mild decrease in GFR 60-89 3 Moderate decrease in GFR 30-59 4 Severe decrease in GFR 15-29 5 Kidney failure <15 (or dialysis) 53 Because ethnic data is not always readily available, this report includes an eGFR for both -Americans and non- Americans. The National Kidney Disease Education Program (NKDEP) does not endorse the use of the MDRD equation for patients that are not between the ages of 18 and 70, are , have extremes of body size, muscle mass, or nutritional status, or are non- or non-. According to the National Kidney Foundation, irrespective of diagnosis, the stage of the disease is based on the level of kidney function: Stage Description GFR(mL/min/1.73 m(2)) 1 Kidney damage with normal or decreased GFR 90 2 Kidney damage with mild decrease in GFR 60-89 3 Moderate decrease in GFR 30-59 4 Severe decrease in GFR 15-29 5 Kidney failure <15 (or dialysis) 54 Because ethnic data is not always readily available, this report includes an eGFR for both -Americans and non- Americans. The National Kidney Disease Education Program (NKDEP) does not endorse the use of the MDRD equation for patients that are not between the ages of 18 and 70, are , have extremes of body size, muscle mass, or nutritional status, or are non- or non-. According to the National Kidney Foundation, irrespective of diagnosis, the stage of the disease is based on the level of kidney function: Stage Description GFR(mL/min/1.73 m(2)) 1 Kidney damage with normal or decreased GFR 90 2 Kidney damage with mild decrease in GFR 60-89 3 Moderate decrease in GFR 30-59 4 Severe decrease in GFR 15-29 5 Kidney failure <15 (or dialysis) 55 HDL Interpretation: Undesirable: High Risk: Less than 40 mg/dL Desirable: Low Risk: Greater than 60 mg/dL 56 LDL Interpretation: Low Risk Optimal Level: LDL Less than 100 mg/dL Near or Above Optimal: LDL 100-129 mg/dL Borderline High Risk: LDL 130-159 mg/dL High Risk: LDL 160-189 mg/dL Very High Risk: LDL Greater than 189 mg/dL 57 FASTING 12 HOUR Please get this done soon 58 -- REFERENCE VALUE -- Negative Test Performed by: [facility] [place] [address] Vice President Industrial Relations: Gigi Barahona III, M.D. 59 Results suggest response to immunization or prior exposure to the virus. -- REFERENCE VALUE -- Negative 60 Test Performed by: [facility] [place] [address] Vice President Industrial Relations: Gigi Barahona III, M.D. 61 -- REFERENCE VALUE -- Negative Test Performed by: [facility] [address] [address] Vice President Industrial Relations: Gigi Barahona III, M.D. 62 -- REFERENCE VALUE -- Negative Test Performed by: [facility] [address] [address] Vice President Industrial Relations: Gigi Barahona III, M.D. 63 RUN DATE: 01/03/12 [facility] LAB LIVE PAGE 1 RUN TIME: [address], [place], [place] [address] Specimen Inquiry Name: EDY PIÑA : [address]: Lela Garcia MD Acct: [id number] Unit: [id number] AGE: 56 Location: [facility] Re01/01/12 SEX: F Status: REG REF SPEC: [id number] MAE: 01/01/12-[address] [facility] [address]: Lela Garcia MD REQ: [id number] RECD: 01/02/12 STATUS: OLIVIA BORDEN DR: Sindy MATHUR,Collette _ ORDERED: LEVEL III FINAL DIAGNOSIS Soft tissue, back, excision: Lipoma. CLINICAL HISTORY Present many years, recently becoming larger with discomfort GROSS DESCRIPTION The specimen is received in formalin labelled Edy Piña, Back Mass, and consists of a fibrofatty mass measuring 4.0 x 3.8 cm. by up to 1.5 cm. Cut sections demonstrate lobulated yellow adipose tissue. Senior Manufacturing Technician sections, one cassette. Signed (signature on file) Gómez Pettit MD 1524 END OF REPORT * ML=Testing performed at Main Lab DEPARTMENT OF PATHOLOGY, [address] [place] [address] Gómez Pettit M.D. Director [facility] Permit #[id number] 64 A metabolite of Naproxen, O-desmethylnaproxen, has been shown to interfere with the [place] method for measuring total bilirubin. Samples from patients who have taken Naproxen have shown spurious elevation in total bilirubin levels. 65 Because ethnic data is not always readily available, this report includes an eGFR for both -Americans and non- Americans. The National Kidney Disease Education Program (NKDEP) does not endorse the use of the MDRD equation for patients that are not between the ages of 18 and 70, are , have extremes of body size, muscle mass, or nutritional status, or are non- or non-. According to the National Kidney Foundation, irrespective of diagnosis, the stage of the disease is based on the level of kidney function: Stage Description GFR(mL/min/1.73 m(2)) 1 Kidney damage with normal or decreased GFR 90 2 Kidney damage with mild decrease in GFR 60-89 3 Moderate decrease in GFR 30-59 4 Severe decrease in GFR 15-29 5 Kidney failure <15 (or dialysis) 66 Desirable: Less than 200 MG/DL Borderline-High Risk: 200-239 MG/DL High-Risk: 240 MG/DL and over 67 HDL Interpretation: Undesirable: High Risk: Less than 40 MG/DL Desirable: Low Risk: Greater than 60 MG/DL 68 LDL Interpretation: Low Risk Optimal Level: LDL Less than 100 MG/DL Near or Above Optimal: LDL 100-129 MG/DL Borderline High Risk: LDL 130-159 MG/DL High Risk: LDL 160-189 MG/DL Very High Risk: LDL Greater than 189 MG/DL 69 Fasting 70 The World Health Organization (WHO) Hepatitis B Immunoglobulin 1st International Reference Preparation (1976): The accepted criteria for immunity to HBV is anti-HBs activity greater than or equal to 10 mIU/mL. An Index Value of 1.00 is equivalent to 10 mIU/mL. Samples with an Index Value of 1.00 or greater are considered reactive (protective) in accordance with the CDC guidelines. 71 Because ethnic data is not always readily available, this report includes an eGFR for both -Americans and non- Americans. The National Kidney Disease Education Program (NKDEP) does not endorse the use of the MDRD equation for patients that are not between the ages of 18 and 70, are , have extremes of body size, muscle mass, or nutritional status, or are non- or non-. According to the National Kidney Foundation, irrespective of diagnosis, the stage of the disease is based on the level of kidney function: Stage Description GFR(mL/min/1.73 m(2)) 1 Kidney damage with normal or decreased GFR 90 2 Kidney damage with mild decrease in GFR 60-89 3 Moderate decrease in GFR 30-59 4 Severe decrease in GFR 15-29 5 Kidney failure <15 (or dialysis) 72 AA 09/10/07 Procedures Date Code Description Status 04/25/2018 96664 Arthroscopy,Knee,Meniscectomy Medial Or Lateral Completed 04/25/2018 29209 Arthroscopy,Knee,Meniscectomy Medial Or Lateral Completed 04/08/2018 58155 Inject/Drain Joint/Bursa Major W/O US Completed 02/01/2018 27945 Thyroidectomy, Total Completed 02/01/2018 76467 Thyroidectomy, Total Completed 12/26/2017 24361 Endometrial Sampling W Or W/O Endocervical BX W Or W/O Completed Cerv Dilat 11/16/2017 [id number] Mammogram Completed 04/30/2017 [id number] Mammogram Completed 04/26/2017 [id number] Mammogram Completed 04/05/2016 [id number] Mammogram Completed 03/01/2016 [id number] Colonoscopy Completed 03/10/2015 [id number] Mammogram Completed 07/28/2014 17250 Pulmonary Function><Bronchodil Completed 07/28/2014 90285 Plethysmography Determination Lung Volumes & Per Completed Airway Resist 07/28/2014 20170 Diffusing Capacity Completed 03/09/2014 [id number] Mammogram Completed 10/03/2013 86496 Polysomnography Sleep Staging 4+ Parameters W/Cpap Completed 09/08/2013 31269 Polysomnography Sleep Staging 4+ Parameters Completed 02/04/2013 [id number] Mammogram Completed 01/14/2013 35013 EKG Tracing & Interpretation Completed 05/31/2011 [id number] Mammogram Completed 04/01/2010 [id number] Mammogram Completed 07/30/2008 [id number] Mammogram Completed 07/13/2008 99685 EKG Tracing & Interpretation Completed 01/05/2006 [id number] Colonoscopy Completed 09/05/2004 [id number] Bone Mineral Density Test Completed Encounters Type Date Location Provider Dx Diagnosis Office Visit 04/15/2018 Orthopedic Sue Watts, M25.562 Pain in left knee 1:00p Services Of [facility] M.D. M17.12 Unilateral primary osteoarthritis, left knee M25.462 Effusion, left knee S83.242A Oth tear of medial meniscus, current injury, left knee, init Office Visit 04/08/2018 8:00a [facility] Sue Watts, M25.562 Pain in left Of [facility]. M.D. knee M25.462 Effusion, left knee M17.12 Unilateral primary osteoarthritis, left knee Office Visit 04/01/2018 10:30a [facility] Internal Annita Aranda J06.9 Acute upper Medicine - M.D. respiratory [place] infection, unspecified Office Visit 02/28/2018 9:00a [facility] Internal Rosa M Engel, Z00.01 Encounter for Medicine N.P. general adult medical exam w abnormal findings E78.00 Pure hypercholesterolemia, unspecified G47.33 Obstructive sleep apnea (adult) (pediatric) K21.9 Gastro-esophageal reflux disease without esophagitis J45.30 Mild persistent asthma, uncomplicated E03.9 Hypothyroidism, unspecified D50.9 Iron deficiency anemia, unspecified M25.562 Pain in left knee Office Visit 01/21/2018 3:40p [facility] Internal Rosa M Engel J01.90 Acute sinusitis, Medicine N.P. unspecified Office Visit 01/03/2018 12:30p Surgical Tamara Lr MD C73 [facility] neoplasm of thyroid gland Office Visit 12/11/2017 11:40a [facility] Internal Lui Miller01.90 Acute sinusitis, Medicine N.P. unspecified Office Visit 11/22/2017 9:00a [facility] Internal Rosa M Engel, J01.90 Acute sinusitis, Medicine N.P. unspecified N85.00 Endometrial hyperplasia, unspecified J45.21 Mild intermittent asthma with (acute) exacerbation Office Visit 04/17/2017 11:40a [facility] Internal Rosa M Engel, H81.10 Benign paroxysmal Medicine N.P. vertigo, unspecified ear Office Visit 01/31/2017 8:40a [facility] Internal Dick Parker NP Z00.00 Encntr for general Medicine adult medical exam w/o abnormal findings R79.9 Abnormal finding of blood chemistry, unspecified Z12.31 Encntr screen mammogram for malignant neoplasm of breast Office Visit 11/16/2016 11:40a [facility] Internal Jelly R07.89 Other chest Medicine Heather Helms pain Office Visit 02/02/2016 3:00p Orthopedic Adelaida Olivas, M25.532 Pain in left Services Of RPA-C wrist C.M.A. Office Visit 01/21/2016 9:20a [facility] Internal Rosa M Engel, Z00.01 Encounter for Medicine N.P. general adult medical exam w abnormal findings Z12.31 Encntr screen mammogram for malignant neoplasm of breast E78.00 Pure hypercholesterolemia, unspecified G47.33 Obstructive sleep apnea (adult) (pediatric) K21.9 Gastro-esophageal reflux disease without esophagitis J30.9 Allergic rhinitis, unspecified J45.31 Mild persistent asthma with (acute) exacerbation Office Visit 09/24/2015 10:20a [facility] Internal Rosa M Engel, B37.3 Candidiasis of Medicine N.P. vulva and vagina Office Visit 09/09/2015 8:00a Pulmonology And Jerrica G47.33 Obstructive sleep Sleep Services Of MD Mina apnea (adult) [facility] (pediatric) J45.20 Mild intermittent asthma, uncomplicated Office Visit 07/20/2015 [facility] Internal Rosa M Engel, J01.00 Acute maxillary 10:20a Medicine N.P. sinusitis, unspecified Office Visit 07/09/2015 [facility] Internal Rosa M Engel, J01.20 Acute ethmoidal 10:20a Medicine N.P. sinusitis, unspecified Office Visit 05/31/2015 Rheumatology Juice Foote, R76.0 Raised antibody 1:20p Services Of [facility] Heather titer Office Visit 05/14/2015 [facility] Internal Dick Parker NP J06.9 Acute upper 9:20a Medicine respiratory infection, unspecified Office Visit 03/31/2015 Rheumatology Juice Qamar, R76.0 Raised antibody 4:00p Services Of [facility] Heather titer M06.4 Inflammatory polyarthropathy R20.8 Other disturbances of skin sensation Office Visit 01/18/2015 10:40a [facility] Internal Rosa M Engel, Z00.00 Encntr for Medicine N.P. general adult medical exam w/o abnormal findings K21.9 Gastro-esophageal reflux disease without esophagitis G47.33 Obstructive sleep apnea (adult) (pediatric) E78.0 Pure hypercholesterolemia Z87.891 Personal history of nicotine dependence J45.30 Mild persistent asthma, uncomplicated Z12.39 Encounter for oth screening for malignant neoplasm of breast B02.9 Zoster without complications Office Visit 01/15/2015 [facility] Internal Dick Parker NP B02.9 Zoster without 10:40a Medicine complications Office Visit 11/16/2014 [facility] Internal Rosa M Engel, J06.9 Acute upper 1:20p Medicine N.P. respiratory infection, unspecified Office Visit 08/31/2014 Pulmonology And Jerrica 327.23 Obstructive Sleep 2:15p Sleep Services Of MD Mina Apnea Adult & [facility] Pediatric 493.10 Asthma Intrinsic Unspecified 461.9 Sinusitis Acute Unspec 530.81 Esophageal Reflux 278.00 Obesity Unspec Office Visit 08/20/2014 11:00a [facility] Internal Rosa M Engel, 461.9 Sinusitis Acute Medicine N.P. Unspec 461.0 Sinusitis Acute Maxillary Office Visit 04/06/2014 3:00p [facility] Internal Rosa M Engel, 386.11 Vertigo Benign Medicine N.P. Paroxysmal Position Office Visit 02/04/2014 11:00a Pulmonology And Jerrica 327.23 Obstructive Sleep Sleep Services Of MD Mina Apnea Adult & [facility] Pediatric 530.81 Esophageal Reflux 477.9 Rhinitis Allergic Cause Unspec 493.10 Asthma Intrinsic Unspecified Office Visit 01/16/2014 10:40a [facility] Internal Rosa M Engel, V70.0 Examination Medicine N.P. General Medical Routine AT Health Care Facility V76.10 Screening For Malignant Neoplasm Breast 530.81 Esophageal Reflux 272.4 Hyperlipidemia Other Unspec 493.90 Asthma Unspec W/O Status Asthmaticus 327.23 Obstructive Sleep Apnea Adult & Pediatric 783.1 Weight Gain Abnormal Office Visit 08/14/2013 1:55p Sleep Disorder Salomon SK. 780.59 Sleep Disturbances Center Heather Cerrato Other 786.09 Dyspnea & Respiratory Abnormalities Other Office Visit 06/16/2013 10:40a [facility] Internal Rosa M Engel, 780.79 Malaise And Medicine N.P. Fatigue Other Office Visit 01/14/2013 1:00p [facility] Internal Rosa M Engel, V70.0 Examination Medicine N.P. General Medical Routine AT Health Care Facility V76.10 Screening For Malignant Neoplasm Breast 530.81 Esophageal Reflux 272.4 Hyperlipidemia Other Unspec 493.90 Asthma Unspec W/O Status Asthmaticus 786.50 Pain Chest Unspec 627.1 Postmenopausal Bleeding Office Visit 12/12/2011 2:00p [facility] Internal Rosa M Engel, V70.0 Examination Medicine N.P. General Medical Routine AT Health Care Facility 530.81 Esophageal Reflux 272.0 Hypercholesterolemia Pure 493.90 Asthma Unspec W/O Status Asthmaticus 388.30 Tinnitus Unspecified 372.00 Conjunctivitis Acute Unspec 214.9 Lipoma Unspecified Site V03.82 Streptococcus Pneumoniae Vaccination Spec Other Office Visit 02/14/2011 11:40a [facility] Internal Rosa M Engel, 351.8 Nerve Disorder Medicine N.P. Facial Other Office Visit 08/05/2010 9:40a DO Not Use Collette Callahan, 053.9 Herpes Zoster W/O Angela Romero, FACP Complication Office Visit 12/03/2009 4:30p DO Not Use Jelly 466.0 Bronchitis Acute Angela Helms M.D. Office Visit 07/09/2009 1:15p DO Not Use Rosa M Engel, 493.90 Asthma Unspec W/O 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-[place] N.P. Status Asthmaticus Office Visit 07/06/2009 3:15p DO Not Use Collette Callahan, 493.90 Asthma Unspec W/O Angela Romero, FACP Status Asthmaticus 466.0 Bronchitis Acute Office Visit 05/26/2009 8:30a DO Not Use Rosa M Engel, 724.1 Pain Thoracic 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-[place] N.P. Spine 214.1 Lipoma Other Skin And Subcutaneous Tissue Office Visit 02/10/2009 4:30p DO Not Use Collette Sindy, 461.9 Sinusitis Acute Angela Romero, FACP Unspec V04.81 Need For Prophylactic Vaccination & Inoculation/Influenza Office Visit 02/03/2009 3:00p DO Not Use Collette Sindy, 466.0 Bronchitis Acute Angela Romero, FACP Office Visit 12/15/2008 4:15p DO Not Use [place], 465.9 URI Upper Angela Cullen M.D. Respiratory Infections Acute Unspec Sites 477.9 Rhinitis Allergic Cause Unspec Office Visit 07/13/2008 9:30a DO Not Use Collette Sindy, V70.0 Examination Angela Romero, FACP General Medical Routine AT Health Care Facility 285.9 Anemia Unspec 272.0 Hypercholesterolemia Pure 530.81 Esophageal Reflux Office Visit 05/11/2008 DO Not Use Collette Sindy, 465.9 URI Upper 12:15p Angela Romero, FACP Respiratory Infections Acute Unspec Sites Office Visit 03/12/2008 DO Not Use [place] Sindy, 461.9 Sinusitis Acute 12:15p Angela Romero, FACP Unspec Office Visit 12/09/2007 DO Not Use Rosa M Varn, 112.0 Candidiasis Mouth 11:45a 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[place] N.P. Office Visit 11/27/2007 DO Not Use Rosa M Varn, 466.0 Bronchitis Acute 11:30a 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[place] N.P. Office Visit 05/08/2007 DO Not Use Rosa M Varn, 461.9 Sinusitis Acute 9:00a 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[place] N.P. Unspec 466.0 Bronchitis Acute Office Visit 06/13/2006 1:45p DO Not Use Collette Sindy, 466.0 Bronchitis Acute 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-Violeta Romero, FACP Office Visit 04/26/2006 9:30a DO Not Use Collette Sindy, 285.9 Anemia Unspec Ebony-Violeta Romero, FACP 530.81 Esophageal Reflux 995.3 Allergy Unspec Plan of Treatment Future Appointment(s):05/15/2018 8:00 am - Sue [facility] M.D. at [facility]05/16/2018 8:30 am - Tamara Lr MD at [facility]05/06/2018 - Sue Watts M.D.M25.562 Pain in left kneeNew Therapy: Physical TherapyFollow up:Follow up: 4 hmncdE32.462 Effusion, left kneeS83.242A Other tear of medial meniscus, current injury, left knee, in
--- OUTSIDE RECORDS SUMMARY | 2018-05-24 17:58 | XMS REPORT | Continuity of Care Document ---
:1955 External Reference #:[id number] Author Name Britney Velazco Care Team Providers Name Role Phone Jelly Helms MD Primary Care Physician Unavailable Payers Date Identification Numbers Payment Provider Subscriber Effective: Policy Number: [id number] [employer] Edy Piña 2018 PayID: [id number] [address] [facility] [place] [address] Effective: 2015 Policy Number: [id number] [employer] Edy Piña Expires: 2018 PayID: [id number] [address] [facility] [place] [address] Effective: 2013 Policy Number: [id number] [employer] Marshall Piña PayID: [id number] [address] [place] [address] Expires: 2015 Policy Number: [id number] [facility] Ppo Edy Piña PayID: [id number] [address] [address] [place] [address] Effective: 2010 Policy Number: [id number] [employer] Edy Rafael Piña Expires: 2014 PayID: [id number] [address] [address] [place] [address] Effective: 2012 Policy Number: [id number] [employer] Edy Piña Expires: 2013 PayID: [id number] [address] [address] Advance Directives Description No Information Available Problems Date Description Provider Status Onset: 08/04/2010 Pure hypercholesterolemia Collette Callahan M.D., FACP Active Onset: 12/11/2011 Gastroesophageal reflux disease Rosa M Engel N.P. Active Onset: 02/04/2014 Obstructive sleep apnea syndrome Jerrica Enriquez MD Active Onset: 02/04/2014 Allergic rhinitis Jerrica Enriquez MD Active Onset: 02/04/2014 Intrinsic asthma without status Jerrica Enriquez MD Active asthmaticus Onset: 08/31/2014 Obesity Jerrica Enriquez MD Active Onset: 01/21/2016 Mild persistent asthma Rosa M Engel N.P. Active Onset: 04/08/2018 Localized, primary osteoarthritis Sue [...] Use Denies Drug Use Smoking Status Reviewed: 05/01/18 Patient is a former started in 1969, [...] Tablets DR 325mg 28tab take 1 by Sue s mouth twice Mac, a day for M.D. two weeks Hydrocodone-Henry 04/08 Active Tablets 5-325mg 60tab 1 tabs by M25.562 Sue taminophen s mouth every Mac, 4-6 hours M.D. as needed for pain Spacer For 12/11 Active 2unit Use with J01.90 Rosa M Inhaler s inhaler Varn, N.P. Symbicort 11/22 Active [...] Estradiol Active Tablets 0.5mg 90tab pt taking s 0.25----1 po qd Progesterone Active Oil 100mg 1 po hs Unknown Tramadol HCL Active Tablets 50mg 120ta qid prn Unknown bs Flexeril Active Tablets 10mg 30tab 1/2 -1 po Unknown / s tid prn Emergen-C Active Packet Unknown Vitamin C Multi Adult Active Chewtabs 2 by mouth Unknown Gummies every day Tylenol Extra Active Tablets 500mg 2 by mouth Unknown Strength 0000 as needed Levothyroxine Active Tablets 150mcg 1 by mouth Unknown Sodium /0000 every Am Calcium Active Tablets 1 by mouth Unknown / every day Flonase Allergy Active Suspension 50mcg/Act Unknown Relief /0000 Childrens Xyzal Allergy Active Tablets 5mg OTC Unknown 24HR 0000 Levaquin 01/21 Hx Tablets 500mg 10tab 1 [...] Potassium - twice daily 12/02 for 10 /2017 Azithromycin 05/03 Hx Tablets 250mg 6tabs two [...] 09/23 Hx Powder 1unit Apply bid B37.3 Domestic s until rash Varn, N.P. - clears 01/20 Levaquin 07/19 Hx Tablets 500mg 10tab 1 by mouth J01.00 s daily for Varn, N.P. - 10 days 07/29 Amoxicillin/Cla 07/08 Hx Tablets 875-125mg 20tab one tablet J01.20 s by mouth Varn, N.P. Potassium - [...] Varn, N.P. - 12 hours 08/30 for 2014 Fluticasone 08/20 Hx Suspension 50mcg/Act 16uni 2 [...] three times Sindy, - a day prn Heather, FACP 01/14 Azithromycin 12/03 Hx Tablets 250mg 6tabs 2 tabs po 466.0 Jelly /2010 on day 1; 1 Cotton, - tab po qd M.D. 08/05 on days 2- Advair Diskus 07/13 Hx Aerosol 100-50mcg 60uni 1 inh bid /Dose Magdalena Hernandez M.D., FACP 12/11 Albuterol 07/06 Hx 1unit 2 puffs po Collette Inhaler s qid prn Magdalena Callahan M.D., FACP 12/11 Azithromycin Hx 250mg 6unit 2 tabs po Collette / s day 1, then Sindy, - 1 tab po qd M.D., FACP 12/03 til Singulair Hx 10mg 30uni 1 po qd Collette Magdalena Hernandez M.D., FACP 12/[address] 20mg 30cap Take One Collette s Capsule By Sindy - Mouth Every [facility] Hx Tablets 500mg 1-2 by Unknown [...] Form Strength Qnty SIG Indications Ordering Provider Depomedrol Administered Injection Sue 40MG Samantha Watts M.D. Immunizations CPT Code Status Date Vaccine Reaction Lot # [id number] Given 10/23/2016 Influenza Virus Vaccine, [place] [facility] Quadrivalent, Split, Preservative Free [id number] Given 10/13/2014 Flu Vaccine NOS [id number] Given 01/19/2014 Tdap - Tetanus/Diptheria/Acellular [id number] Pertussis 84200 Given 12/12/2011 Pneumonia Vaccine [id number] Given 02/10/2009 Influenza Virus Vaccine, Pandemic Formulation [id number] Given 02/10/2009 Administration Swine Flu Shot Vital Signs Date Vital Result Comment 05/01/2018 10:58am Height 65 inches 5'5" Weight [...] Result H/L Range Note Laboratory test 04/24/2018 [facility] TSH 0.14 mcIU/mL Low 0.34-5.60 1 finding 101 ([place] [address] Stim Horm) [phone] Free T4 (Free Thyroxine) 1.14 ng/dL High 0.61-1.12 2 T3 Total 99 ng/dL N 87-178 3 CBC Auto Diff 02/28/2018 [facility] White Blood 6.6 10^3/uL N 3.5-10.8 [place] [address] [phone] Red Blood Count 4.50 10^6/uL N 4.00-5.40 [...] Blood Cells % 0.1 Laboratory test 02/28/2018 [facility] Ferritin 25.5 ng/mL N 11 -[address] [place] [address] [phone] Lipid Profile 02/22/2018 [facility] Triglycerides 132 mg/dL 4 (Trig/Chol/HDL) [address] [place] [address] [phone] Cholesterol 203 mg/dL 5 HDL Cholesterol 50.8 mg/dL 6 LDL Cholesterol 126 mg/dL 7 Comp Metabolic Panel 02/22/2018 [facility] Sodium 139 mmol/L N 135-[address] [place], [place] [address] [phone] Potassium 4.3 mmol/L N 3.5-5.0 Chloride 104 [...] >60 Egfr 91.3 >60 8 Laboratory 02/22/2018 [facility] TSH (Thyroid 0.43 N 0.34- 5.60 test finding [address] Stim Horm) mcIU/[place] [address] [phone] Laboratory 02/01/2018 [facility] Surgical SEE RESULT 9 test finding [address] [place] [address] [phone] Laboratory 01/31/2018 [facility] Tisseel 10ML SEE RESULTS 10, test finding [address] BELO <SEE 11 [place] [address] NOTE> [phone] Laboratory 12/26/2017 [facility] Surgical SEE RESULT 12, test finding [address] Pathology BELOW 13 [place] [address] [phone] Laboratory 10/24/2017 [facility] Blood Urea 15 mg/dL N 6-24 test finding [address] Nitrogen BUN [place], [place] [address] [phone] Creatinine 10/24/2017 [facility] Creatinine 0.76 mg/dL N 0.51- 0.[address] [place] [address] [phone] Egfr Non- 76.9 >60 Egfr 93.0 >60 14 Laboratory test 04/30/2017 [facility] Surgical SEE RESULT 15, [address] [place] [address] [phone] Iron & Iron 02/09/2017 [facility] Iron 46 g/dL Low 50-[address] 12 [place] [address] [phone] Unsaturated Iron Binding 374 g/dL Total Iron Binding Capacity 420 g/dL N 250-450 % Iron Saturation 11 % Low 15-55 CBC Auto Diff 02/09/2017 [facility] White Blood 6.0 10^3/uL N 3.5-10.[address] [place] [address] [phone] Red Blood Count 4.51 10^6/uL N 4.0-5.4 [...] Blood Cells % 0.1 Laboratory test 01/24/2017 [facility] TSH (Thyroid 1.22 mcIU/mL N 0.34-5.60 [address] Stim Horm) [place] [address] [phone] Comp Metabolic 01/24/2017 [facility] Sodium 137 mmol/L N 133- 145 Panel 101 [place] [address] [phone] Potassium 4.4 mmol/L N 3.5-5.0 Chloride 106 [...] Egfr 94.8 >60 18 Lipid Profile 01/24/2017 [facility] Triglycerides 100 mg/dL 19 (Trig/Chol/HDL) [address] [place] [address] [phone] Cholesterol 174 mg/dL 20 HDL Cholesterol 42.9 mg/dL 21 LDL Cholesterol 111 mg/dL 22 Comp Metabolic Panel 01/13/2016 [facility] Sodium 136 mmol/L N 133-145 [address] [place] [address] [phone] Potassium 4.4 mmol/L N 3.5-5.0 Chloride 104 [...] 98.0 N >60 23 Lipid Profile 01/13/2016 [facility] Triglycerides 110 mg/dL N 24 (Trig/Chol/HDL) [address] [place], [place] [address] [phone] Cholesterol 178 mg/dL N 25 HDL Cholesterol 44.4 mg/dL N 26 LDL Cholesterol 112 mg/dL N 27 Laboratory 04/01/2015 [facility] Marylou Reflexed Abnormal Negative 28 test finding [address] ([place] [address] Antibodies) [phone] C Reactive Protein 3.66 mg/L N < 5.00 29 Cardiolipin 04/01/2015 [facility] Phospholipid Ab < 4.0 MPL N 30 Igg/Igm [address] IgM, [place] [address] [phone] Phospholipid Ab IgG < 4.0 GPL N 31 Laboratory test 04/01/2015 [facility] Complement C3 118 mg/dL N 75 - 175 [address] [place], [place] [address] [phone] Complement C4 24 mg/dL N 14 - 40 33 Anti Dna (Double Stranded Dna) Negative N Negative 34 Samina Screen Negative N Negative 35 Scleroderma AB (SCL70) <0.2 U N 36 Creatine Kinase(CK) 95 U/L N 10-223 37 Vitamin B12 417 pg/mL N 180-914 38 Vitamin D 1,25 04/01/2015 [facility] Vitamin D 29.7 ng/mL Low 30-50 39 And Vitamin D,[address] Total 25(Oh) [place] [address] [phone] Vitamin D, 1,25 Dihydroxy 70 pg/mL N 18-78 40 Marylou Hep-2 04/01/2015 [facility] Marylou Pattern Homogeneous N Negative [address] [place] [address] [phone] Marylou Titer 1:1280 N <1:80 Marylou Reviewed By MD Gómez Ayers <SEE NOTE> N 41 Lipid Profile 01/23/2015 [facility] Triglycerides 169 mg/dL N 42 (Trig/Chol/HDL) [address] [place] [address] [phone] Cholesterol 175 mg/dL N 43 HDL Cholesterol 41.7 mg/dL N 44 LDL Cholesterol 100 mg/dL N 45 Comp Metabolic Panel 01/23/2015 [facility] Sodium 136 mmol/L N 133-145 [address] [place] [address] [phone] Potassium 4.1 mmol/L N 3.5-5.0 Chloride 102 [...] 86.6 N >60 46 Lipid Profile 01/20/2014 [facility] Triglycerides 188 mg/dL N 47, 48 (Trig/Chol/HDL) [address] [place] [address] [phone] Cholesterol 163 mg/dL N 49 HDL Cholesterol 37.9 mg/dL N 50 LDL Cholesterol 88 mg/dL N 51 Comp Metabolic Panel 01/20/2014 [facility] Sodium 137 mmol/L N 133-145 [address] [place] [address] [phone] Potassium 3.8 mmol/L N 3.5-5.0 Chloride 105 [...] 106.6 N >60 52 CBC With 07/17/2013 [facility] White Blood 6.5 10^3/uL N 4.8- 10.8 Manual Diff [address] [place] [address] [phone] Red Blood Count 4.34 10^6/uL N 4.0-5.4 [...] Normal N Normal Comp Metabolic Panel 06/16/2013 [facility] Sodium 137 mmol/L N 133-[address] [place] [address] [phone] Potassium 4.1 mmol/L N 3.7-5.6 Chloride 106 [...] N >60 53 CBC Auto Diff 06/16/2013 [facility] White Blood 7.4 10^3/uL N 4.8-10.[address] [place] [address] [phone] Red Blood Count 4.27 10^6/uL N 4.0-5.4 [...] Cells % 0 N Laboratory test 06/16/2013 [facility] TSH (Thyroid 2.83 IU/mL N 0.34-5.[address] [place] [address] Horm) [phone] Ferritin 14.8 ng/mL N 11-307 Comp Metabolic Panel 01/16/2013 [facility] Sodium 137 mmol/L 133-[address] [place] [address] [phone] Potassium 4.3 mmol/L 3.5-5.0 Chloride 104 mmol/L [...] Egfr 94.7 >60 54 Lipid Profile 01/16/2013 [facility] Triglycerides 83 mg/dL 40 -200 (Trig/Chol/HDL) [address] [place] [address] [phone] Cholesterol 168 mg/dL Less than 200 HDL Cholesterol 42 mg/dL 40-60 55 Cholesterol/HDL Ratio 4.0 Average 1-4.44 LDL Cholesterol 109.4 High Less Than 100 56 Laboratory 01/16/2013 [facility] Hepatitis C Nonreactive Nonreactive [address] Antibody [place], [place] [address] [phone] Laboratory 03/28/2012 [facility] Rubeola Positive 58 test finding [address] (Measles) [place] [address] IgG Antibody [phone] Mumps Igg 03/28/2012 [facility] Mumps Virus Positive [address] IgG Antibody [place], [place] [address] [phone] Mumps IgG Antibody Index 7.36 0.00-0.89 60 Laboratory test 03/12/2012 [facility] Rubella IgG Positive [address] [place] [address] [phone] Laboratory test 03/12/2012 [facility] Varicella-Zost Positive [address] [place] [address] Antibody [phone] Surgical 01/01/2012 [facility] S RUN DATE: [address] 01/02/ <[place] [address] NOTE> [phone] Comp Metabolic 12/13/2011 [facility] Sodium 138 mmol/L 133-[address] 45 [place] [address] [phone] Potassium 4.9 mmol/L 3.5-5.0 Chloride 107 mmol/L [...] Egfr 95.1 >60 65 Lipid Profile 12/13/2011 [facility] Triglycerides 118 mg/dL 40-200 (Trig/Chol/HDL) [address] [place] [address] [phone] Cholesterol 187 mg/dL Less than 200 66 HDL Cholesterol 47 mg/dL 40-60 67 Cholesterol/HDL Ratio 4.0 AVERAGE 1-4.44 LDL Cholesterol 116.4 mg/dL High Less Than 100 68 Laboratory 12/13/2011 [facility] TSH (Thyroid 2.57 MIU/ML 0.34-5.60 69 test finding [address] [address] Horm) [phone] Hepatitis B 12/13/2011 [facility] Hepatitis B Reactive Nonreactive Angela AB Titer [address] [place] [address] [phone] Hep B Surf AB Index 1.52 70 Ua Routine 12/12/2011 [facility] Ua Specific [place] 1.005 Ua PH 6 Ua Color yellow Ua Appera clear Ua WBC neg Ua Protein neg Ua Glucose neg Ua Ketones neg Ua Bilirubin neg Ua Urobilinogen neg Ua Nitrite neg Ua Occult Blood non hemo trace Creatinine 12/04/2011 [facility] Creatinine 0.70 mg/dL 0.50- 1.[address] [place] [address] [phone] Egfr Non- 86.2 >60 Egfr 110.9 >60 71 Laboratory test 12/04/2011 [facility] Blood Urea 7 mg/dL 6- 24 [address] [facility] [place] [address] [phone] Laboratory test 02/14/2011 [facility] Erythrocyte Sed 17 MM/HR 0-[address] [place] [address] [phone] Urinalysis 09/04/2007 [facility] Ua Color YELLOW 72 W/Microscopic [address] [place] [address] [phone] Appearance-Urine CLEAR Specific [place]-Ur 1.010 1.010-1.030 Esterase-Urine NEGATIVE Negative Nitrite NEGATIVE Negative Npucfrnpbtky-Tt-FUY NEGATIVE Negative Protein-Urine NEGATIVE Negative PH-Urine 7.0 5-9 Blood-Urine TRACE Abnormal Negative Ketones-Urine NEGATIVE Negative Bilirubin-Ur NEGATIVE Negative Glucose-Urine NEGATIVE Negative WBC-Urine RARE 0-5 RBC-Urine 1-3 0-2 Epith Cells-Ur MANY CBC With 09/04/2007 [facility] White Blood 6.0 CUMM 4.8-10.8 Electronic Diff [address] [place] [address] [phone] Red Cell Count 4.42 CUMM 4.2-5.4 Hemoglobin [...] 0-0.6 Abs Basophils 0 0-0.2 Urinalysis 09/04/2007 [facility] Ua Color YELLOW [address] [place] [address] [phone] Appearance-Urine CLEAR Specific [place]-Ur 1.010 1.010-1.030 Esterase-Urine NEGATIVE Negative Nitrite NEGATIVE Negative Imarhxkgozfr-Ev-CVL NEGATIVE Negative Protein-Urine NEGATIVE Negative PH-Urine 7.0 [...] [address]: Tamara Lr MD Acct: [id number] Unit: [id number] AGE: 62 Location: OR Re02/01/18 SEX: F Status: [facility] SPEC: [id number] MAE: 02/01/18-[address] [facility] [address]: Tamara Lr MD REQ: [id number] RECD: 02/01/18-1203 STATUS: SOUT _ ORDERED: LEVEL [...] CONTINUED ON NEXT PAGE DEPARTMENT OF PATHOLOGY, [address] [place] [address] Gómez Pettit M.D. Director [facility] # [id number] RUN DATE: 02/04/18 [facility] LAB LIVE PAGE 2 Patient: EDY PIÑA [id number] (Continued) GROSS DESCRIPTION (Continued) GROSS DESCRIPTION 1. [...] 1332 END OF REPORT DEPARTMENT OF PATHOLOGY, [address] [place] [address] Gómez Pettit M.D. Director [facility] # [id number] 10 MALIGNANT NEOPLASM OF THYROID GLAND 11 SEE RESULTS BELOW [id number] TISSEEL 10ML TRANSFUSED 02/01/18 0708 12 [id number] 13 SEE RESULT BELOW Name: EDY PIÑA : [address]: Rosa M Engel NP Acct: [id number] Unit: [id number] AGE: 62 Location: [facility] Re12/26/17 SEX: F Status: REG REF SPEC: [id number] MAE: 12/26/17-[address]: Rosa M Engel NP REQ: [id number] RECD: 12/26/173278 STATUS: SOUT _ ORDERED: LEVEL 4 COMMENTS: [id number] FINAL DIAGNOSIS Uterus, endometrium, biopsy: -- Atrophic [...] 0959 END OF REPORT DEPARTMENT OF PATHOLOGY, [address] [place] [address] Gómez Pettit M.D. Director [facility] # [id number] 14 Because ethnic data is not always [...] 5 Kidney failure <15 (or dialysis) 15 [id number] 16 SEE RESULT BELOW Name: EDY PIÑA : [address]: Rosa M Engel NP Acct: [id number] Unit: [id number] AGE: 62 Location: [facility] Re04/30/17 SEX: F Status: REG REF SPEC: [id number] MAE: 04/30/[address] [facility] [address]: Chito Fierro MD REQ: [id number] RECD: 04/30/17-1255 STATUS: OLIVIA BORDEN DR: Rosa M Engel LINE SERVICE TECHNICIAN _ ORDERED: LEVEL 4 COMMENTS: [id number] FINAL DIAGNOSIS Breast, right, stereotactic biopsy: -- [...] 0948 END OF REPORT DEPARTMENT OF PATHOLOGY, [address] [place] [address] Gómez Pettit M.D. Director [facility] # [id number] 17 FASTING 10 HOUR 18 Because ethnic [...] REFERENCE VALUE <10.0 (Negative) Test Performed by: [place] [address] Community Youth Secretary: Sebastian Ward II, M.D., Ph.D. 32 Test Performed by: [place] [address] Community [employer] Secretary: Sebastain Ward II, M.D., Ph.D. 33 Test Performed by: [place] [address] Community [employer] Secretary: Sebastian Ward II, M.D., Ph.D. 34 this week 35 The above SAMINA screen is designed for the detection of antibodies to extractable nuclear antigen (SAMINA) in human serum. It is a combination test for the detection of antibodies to COMMERCIAL LEASE ADMINISTRATOR, Sm, SS-A (Ro), and SS-B (La) nuclear antigens. 36 REFERENCE VALUE <1.0 (Negative) Test Performed by: [place] [address] Community [employer] Secretary: Sebastian Ward II, M.D., Ph.D. 37 this week 38 Normal Range 180 to 914 Indeterminate Range 145 to 180 Deficient Range <145 39 this week 40 Test Performed by: [place] [address] Community Youth Secretary: Sebastian Ward II, M.D., Ph.D. 41 Gómez [...] REFERENCE VALUE -- Negative Test Performed by: [place] [address] Community [employer] Secretary: Gigi Barahona III, M.D. 59 Results suggest response to immunization or prior exposure to the virus. -- REFERENCE VALUE -- Negative 60 Test Performed by: [place] [address] Community [employer] Secretary: Gigi Barahona III, M.D. 61 -- REFERENCE VALUE -- Negative Test Performed by: [place] [address] Community Youth Secretary: Gigi Barahona III, M.D. 62 -- REFERENCE VALUE -- Negative Test Performed by: [place] [address] Community Youth Secretary: Gigi Barahona III, M.D. 62 RUN DATE: 01/03/12 [facility] LAB LIVE PAGE 1 RUN TIME: [address] [place] [address] Specimen Inquiry Name: EDY PIÑA : [address]: Lela Garcia MD Acct: [id number] Unit: [id number] AGE: 56 Location: [facility] Re01/01/12 SEX: F Status: REG REF SPEC: [id number] MAE: 01/01/12-[address] [facility] [address]: Lela Garcia MD REQ: [id number] RECD: 01/02/12 STATUS: OLIVIA BORDEN DR: Sindy [...] Cut sections demonstrate lobulated yellow adipose tissue. Escapement Matcher sections, one cassette. Signed (signature on file) Gómez Pettit MD 1524 END OF REPORT * ML=Testing performed at Main Lab DEPARTMENT OF PATHOLOGY, [address] [place] [address] Gómez Pettit M.D. Director [facility] Permit #[id number] 64 A metabolite of Naproxen, O-desmethylnaproxen, has been shown to interfere with the Jendrassik-Eleazar method for measuring total bilirubin. Samples from [...] 09/10/07 Procedures Date Code Description Status 04/25/2018 92477 Arthroscopy,Knee,Meniscectomy Medial Or Lateral Completed 04/25/2018 14895 Arthroscopy,Knee,Meniscectomy Medial Or Lateral Completed 04/08/2018 60174 Inject/Drain Joint/Bursa Major W/O US Completed 02/01/2018 73702 Thyroidectomy, Total Completed 02/01/2018 91594 Thyroidectomy, Total Completed 12/26/2017 57097 Endometrial Sampling W Or W/O Endocervical BX W Or W/O Completed Cerv Dilat 11/16/2017 [id number] Mammogram Completed 04/30/2017 [id number] Mammogram Completed 04/26/2017 [id number] Mammogram Completed 04/05/2016 [id number] Mammogram Completed 03/01/2016 85362644 Colonoscopy Completed 03/10/2015 [id number] Mammogram Completed 07/28/2014 09319 Pulmonary Function><Bronchodil Completed 07/28/2014 18268 Plethysmography Determination Lung Volumes & Per Completed Airway Resist 07/28/2014 37200 Diffusing Capacity Completed 03/09/2014 08581001 Mammogram Completed 10/03/2013 76988 Polysomnography Sleep Staging 4+ Parameters W/Cpap Completed 09/08/2013 52026 Polysomnography Sleep Staging 4+ Parameters Completed 02/04/2013 62448646 Mammogram Completed 01/14/2013 47019 EKG Tracing & Interpretation Completed 05/31/2011 64760661 Mammogram Completed 04/01/2010 [id number] Mammogram Completed 07/30/2008 98528507 Mammogram Completed 07/13/2008 27196 EKG Tracing & Interpretation Completed 01/05/2006 34864206 Colonoscopy Completed 09/05/2004 [id number] Bone Mineral Density Test Completed Encounters Type [...] osteoarthritis, left knee Office Visit 04/01/2018 10:30a [facility] Internal Annita Aranda, J06.9 Acute upper Medicine - M.D. respiratory [place] infection, unspecified Office Visit 02/28/2018 9:00a [facility] Internal Rosa M Engel, Z00.01 Encounter for Medicine - N.P. general adult [place] medical exam w abnormal findings E78.00 Pure hypercholesterolemia, unspecified G47.33 Obstructive sleep apnea (adult) (pediatric) K21.9 Gastro-esophageal reflux disease without esophagitis J45.30 Mild persistent asthma, uncomplicated E03.9 Hypothyroidism, unspecified D50.9 Iron deficiency anemia, unspecified M25.562 Pain in left knee Office Visit 01/21/2018 3:40p [facility] Internal Rosa M Engel J01.90 Acute sinusitis, Medicine - N.P. unspecified [place] Office Visit 01/03/2018 12:30p Surgical Tamara Lr MD C73 [facility] neoplasm of thyroid gland Office Visit 12/11/2017 11:40a [facility] Internal Lui Miller01.90 Acute sinusitis, Medicine - N.P. unspecified [place] Office Visit 11/22/2017 9:00a [facility] Internal Lui Miller01.90 Acute sinusitis, Medicine - N.P. unspecified [place] N85.00 Endometrial hyperplasia, unspecified J45.21 Mild intermittent asthma with (acute) exacerbation Office Visit 04/17/2017 11:40a [facility] Internal Rosa M Engel, H81.10 Benign paroxysmal Medicine - N.P. vertigo, [place] unspecified ear Office Visit 01/31/2017 8:40a [facility] Internal Dick Parker NP Z00.00 Encntr for Medicine - general adult [place] medical exam w/o abnormal findings R79.9 Abnormal finding of blood chemistry, unspecified Z12.31 Encntr screen mammogram for malignant neoplasm of breast Office Visit 11/16/2016 11:40a [facility] Internal Jelly R07.89 Other chest Medicine - Heather Helms pain [place] Office Visit 02/02/2016 3:00p Orthopedic Adelaida Olivas, M25.532 Pain in left [facility] wrist C.M.ADerrick Office Visit 01/21/2016 9:20a [facility] Internal Rosa M Engel, Z00.01 Encounter for Medicine - N.P. general adult [place] medical exam w abnormal findings Z12.31 Encntr screen mammogram for malignant neoplasm of breast E78.00 Pure hypercholesterolemia, unspecified G47.33 Obstructive sleep apnea (adult) (pediatric) K21.9 Gastro-esophageal reflux disease without esophagitis J30.9 Allergic rhinitis, unspecified J45.31 Mild persistent asthma with (acute) exacerbation Office Visit 09/24/2015 10:20a [facility] Internal Rosa M Engel, B37.3 Candidiasis of Medicine - N.P. vulva and vagina [place] Office Visit 09/09/2015 8:00a Pulmonology And Jerrica G47.33 Obstructive sleep Sleep Services Of MD Mina apnea (adult) [facility] (pediatric) J45.20 Mild intermittent asthma, uncomplicated Office Visit 07/20/2015 [facility] Internal Rosa M Engel, J01.00 Acute maxillary 10:20a Medicine - N.P. sinusitis, [place] unspecified Office Visit 07/09/2015 [facility] Internal Rosa M Engel, J01.20 Acute ethmoidal 10:20a Medicine - N.P. sinusitis, [place] unspecified Office Visit 05/31/2015 Rheumatology Juice Foote, R76.0 Raised antibody 1:20p Services Of Ebony Romero titer Office Visit 05/14/2015 [facility] Internal Dick Parker NP J06.9 Acute upper 9:20a Medicine - respiratory [place] infection, unspecified Office Visit 03/31/2015 Rheumatology Juice Qamar, R76.0 Raised antibody 4:00p Services Of Ebony Romero titer M06.4 Inflammatory polyarthropathy R20.8 Other disturbances of skin sensation Office Visit 01/18/2015 10:40a [facility] Internal Rosa M Engel, Z00.00 Encntr for Medicine - N.P. general adult [place] medical exam w/o abnormal findings K21.9 Gastro-esophageal reflux disease without esophagitis G47.33 Obstructive sleep apnea (adult) (pediatric) E78.0 Pure hypercholesterolemia Z87.891 Personal history of nicotine dependence J45.30 Mild persistent asthma, uncomplicated Z12.39 Encounter for oth screening for malignant neoplasm of breast B02.9 Zoster without complications Office Visit 01/15/2015 [facility] Internal Dick Parker NP B02.9 Zoster without 10:40a Medicine - complications [place] Office Visit 11/16/2014 [facility] Internal Rosa M Engel, J06.9 Acute upper 1:20p Medicine - N.P. respiratory [place] infection, unspecified Office Visit 08/31/2014 Pulmonology And Jerrica 327.23 Obstructive Sleep 2:15p Sleep Services Of MD Mina Apnea Adult & [facility] Pediatric 493.10 Asthma Intrinsic Unspecified 461.9 Sinusitis Acute Unspec 530.81 Esophageal Reflux 278.00 Obesity Unspec Office Visit 08/20/2014 11:00a [facility] Internal Rosa M Engel, 461.9 Sinusitis Acute Medicine - N.P. Unspec [place] 461.0 Sinusitis Acute Maxillary Office Visit 04/06/2014 3:00p [facility] Internal Rosa M Engel, 386.11 Vertigo Benign Medicine - N.P. Paroxysmal [place] Position Office Visit 02/04/2014 11:00a Pulmonology And Jerrica 327.23 Obstructive Sleep [facility] Mina Apnea Adult & [facility] Pediatric 530.81 Esophageal Reflux 477.9 Rhinitis Allergic Cause Unspec 493.10 Asthma Intrinsic Unspecified Office Visit 01/16/2014 10:40a [facility] Internal Rosa M Engel, V70.0 Examination Medicine - N.P. General Medical [place] Routine AT Health Care Facility V76.10 Screening For Malignant Neoplasm Breast 530.81 Esophageal Reflux 272.4 Hyperlipidemia Other Unspec 493.90 Asthma Unspec W/O Status Asthmaticus 327.23 Obstructive Sleep Apnea Adult & Pediatric 783.1 Weight Gain Abnormal Office Visit 08/14/2013 1:55p Sleep Disorder Salomon [place]. 780.59 Sleep Disturbances Center Heather Cerrato Other 786.09 Dyspnea & Respiratory Abnormalities Other Office Visit 06/16/2013 10:40a [facility] Internal Rosa M Engel, 780.79 Malaise And Medicine - N.P. Fatigue Other [place] Office Visit 01/14/2013 1:00p [facility] Internal Rosa M Engel, V70.0 Examination Medicine - N.P. General [facility] Routine AT Health Care Facility V76.10 Screening For Malignant Neoplasm Breast 530.81 Esophageal Reflux 272.4 Hyperlipidemia Other Unspec 493.90 Asthma Unspec W/O Status Asthmaticus 786.50 Pain Chest Unspec 627.1 Postmenopausal Bleeding Office Visit 12/12/2011 2:00p [facility] Internal Rosa M Engel, V70.0 Examination Medicine - N.P. [facility] Routine AT Health Care Facility 530.81 Esophageal Reflux 272.0 Hypercholesterolemia Pure 493.90 Asthma Unspec W/O Status Asthmaticus 388.30 Tinnitus Unspecified 372.00 Conjunctivitis Acute Unspec 214.9 Lipoma Unspecified Site V03.82 Streptococcus Pneumoniae Vaccination Spec Other Office Visit 02/14/2011 11:40a [facility] Internal Rosa M Engel, 351.8 Nerve Disorder Medicine - N.P. Facial Other [place] Office Visit 08/05/2010 9:40a DO Not Use Collette Callahan, 053.9 Herpes Zoster W/O Angela Romero, FACP Complication Office Visit 12/03/2009 4:30p DO Not Use Jelly 466.0 Bronchitis Acute Angela Helms M.D. Office Visit 07/09/2009 1:15p DO Not Use Rosa M Engel 493.90 Asthma Unspec W/O [place] N.P. Status Asthmaticus Office Visit 07/06/2009 3:15p DO Not Use Collette Callahan 493.90 Asthma Unspec W/O Angela Romero, FACP Status Asthmaticus 466.0 Bronchitis Acute Office Visit 05/26/2009 8:30a DO Not Use Rosa M Varn, 724.1 Pain Thoracic [employer] [facility] N.P. Spine 214.1 Lipoma Other Skin And Subcutaneous Tissue Office Visit 02/10/2009 4:30p DO Not Use Collette Sindy, 461.9 Sinusitis Acute Making Machine OperatorMan Romero, FACP Unspec V04.81 Need For Prophylactic Vaccination & Inoculation/Influenza Office Visit 02/03/2009 3:00p DO Not Use Collette Sindy, 466.0 Bronchitis Acute Angela Romero, FACP Office Visit 12/15/2008 4:15p DO Not Use [place], 465.9 URI Upper Angela Cullen M.D. Respiratory Infections Acute Unspec Sites 477.9 Rhinitis Allergic Cause Unspec Office Visit 07/13/2008 9:30a DO Not Use Collette Sindy, V70.0 Examination Making Machine Operator-Violeta Romero, FACP General Medical Routine AT Health Care Facility 285.9 Anemia Unspec 272.0 Hypercholesterolemia Pure 530.81 Esophageal Reflux Office Visit 05/11/2008 DO Not Use Collette Sindy, 465.9 URI Upper 12:15p Ebony-Violeta Romero, FACP Respiratory Infections Acute Unspec Sites Office Visit 03/12/2008 DO Not Use Collette Sindy, 461.9 Sinusitis Acute 12:15p Making Machine Operator-Violeta Tobin.Eleanor, FACP Unspec Office Visit 12/09/2007 DO Not Use Rosa M Varn, 112.0 Candidiasis Mouth 11:45a [employer] [facility] N.P. Office Visit 11/27/2007 DO Not Use Rosa M Varn, 466.0 Bronchitis Acute 11:30a [employer] [facility] N.P. Office Visit 05/08/2007 DO Not Use Rosa M Varn, 461.9 Sinusitis Acute 9:00a [employer] [facility] N.P. Unspec 466.0 Bronchitis Acute Office Visit 06/13/2006 1:45p DO Not Use Collette Sindy, 466.0 Bronchitis Acute [employer] Machine Operator-Violeta Tobin.Eleanor, FACP Office Visit 04/26/2006 9:30a DO Not Use Collette Sindy, 285.9 Anemia Unspec [employer] [facility] M.Eleanor, FACP 530.81 Esophageal Reflux 995.3 Allergy Unspec Plan of Treatment Future Appointment(s):05/06/2018 8:45 am - Sue [facility] M[facility] at [facility]05/16/2018 8:30 am - Tamara Lr MD at [facility]05/01/2018 - Annita Aranda M.D.J06.9 Acute upper respiratory infection, unspecifiedComments:it is likely a viral infection which is self limiting in 7- 10 day, sometimes it can cause asthma to get worse , let me know if symptoms change
[2018-05-24] MEDS ORDERED: Tetan/Diph/Pertus SYR(Tdap)* 0.5 ML SYR(BOOSTRIX) use SYR IM ONE (18:31)
[2018-05-24] MEDS ORDERED: Silver Sulfadiazine 1%* 20 GM TOPICAL ONE (18:31)
[2018-05-24 18:33] VITALS: BP 121/67
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
== END 2018-05-24 19:05 | disposition home or self-care (01) ==
LOC: UCEAST 17:50
DX: T24.201A Burn of second degree of unspecified site of right lower limb, except ankle and foot, initial encounter (principal); X19.XXXA Contact with other heat and hot substances, initial encounter; Y92.9 Unspecified place or not applicable; Z23 Encounter for immunization; Z88.6 Allergy status to analgesic agent; Z91.011 Allergy to milk products; Z91.048 Other nonmedicinal substance allergy status; Z87.891 Personal history of nicotine dependence
CPT/HCPCS: 16020; 90471; 90715; 99212; A9270-GY; G0463

== ENCOUNTER 2019-12-23 07:23 | Inpatient (IN) ==
[~2019-12-23 07:23] MED LIST changes: +Buffered Lidocaine 1% SYRIN 1 ml INTRADERM ONE; -Buffered Lidocaine 1% SYRIN* 1 ML/SYRINGE INTRADERM ONE; +Dexamethasone IV 4 MG/ML VIAL 1 ml VIAL IV SLOW PU ONE; +Famotidine IV 10 MG/ML 2 ml VIAL (20 mg) IV ONE; +Lactated Ringers 1000 ml BAG 1,000 ML IV SCH
[2019-12-23] MEDS ORDERED: Buffered Lidocaine 1% SYRIN 1 ml INTRADERM ONE (07:52)
[2019-12-23] MEDS ORDERED: Dexamethasone IV 4 MG/ML VIAL 1 ml VIAL ONE (07:52)
[2019-12-23] MEDS ORDERED: ceFAZolin 2 GM PREMIX 2 GM/50 ML BAG ONE (07:52)
[2019-12-23] MEDS ORDERED: Famotidine IV 10 MG/ML 2 ml VIAL (20 mg) ONE (07:53)
[2019-12-23] MEDS ORDERED: DiMENhydriNATE IV 50 mg/ml 1 ml VIAL IV PUSH PRN (08:10)
[2019-12-23] MEDS ORDERED: Naloxone 0.4 mg VIAL 0.4 mg/ml 1 ml VIAL IV PRN (08:10)
[2019-12-23] MEDS ORDERED: Morphine 4 MG/ML VIAL (1 ml) IV PRN (08:10)
[2019-12-23] MEDS ORDERED: oxyCODONE/Acetamin 5/325 mg TAB PO PRN (08:10)
[2019-12-23] MEDS ORDERED: HYDROcodone/ACETAMIN 5/325 mg TAB PO PRN (08:10)
[2019-12-23] MEDS ORDERED: fentaNYL 100 mcg/2 ml 50 MCG/ML VIAL ONE ×4 (09:12→13:01)
[2019-12-23] MEDS ORDERED: Midazolam 2 mg/2 ml VIAL 1 mg/ml 2 ml VIAL (2 mg) ONE ×2 (09:12→09:41)
[2019-12-23] MEDS ORDERED: ROPIVACAINE 5 MG/ML 30 ML BTL (0.5%) ONE ×2 (09:14→09:34)
[2019-12-23] MEDS ORDERED: Rocuronium 50 mg VIAL 10 mg/ml 5 ml VIAL (50 mg) ONE (09:41)
[2019-12-23] MEDS ORDERED: Lidocaine 2% PF 5 ML VIAL ONE (09:41)
[2019-12-23] MEDS ORDERED: Propofol 10 MG/ML 20 ML BTL ONE (09:41)
[2019-12-23] MEDS ORDERED: Phenylephrine 40 mcg/mL 10mL (400mcg) SYRINGE ONE (10:52)
[2019-12-23] MEDS ORDERED: Ondansetron 4 mg VIAL 2 MG/ML 2 ml VIAL ONE (10:52)
[2019-12-23] MEDS ORDERED: Labetalol IV 5 MG/ML 20 ml VIAL ONE (11:03)
[2019-12-23] MEDS ORDERED: Acetaminophen IV 1 GM/100ML 100 ML ONE (11:06)
[2019-12-23] MEDS ORDERED: Ondansetron 4 mg VIAL 2 MG/ML 2 ml VIAL IV PRN (12:46)
[2019-12-23] MEDS ORDERED: Ondansetron ODT 4 mg TAB 4 MG TAB PO PRN (12:46)
[2019-12-23] MEDS ORDERED: diPHENhydraMINE IV 50 MG/ML 1 ml VIAL (BENADRYL) IV PRN (12:46)
[2019-12-23] MEDS ORDERED: Magnesium Hydroxide LIQ 30 ML UDC PO PRN (12:46)
[2019-12-23] MEDS ORDERED: diPHENhydraMINE 25 mg TAB PO PRN (12:46)
[2019-12-23] MEDS ORDERED: Lactulose 30 ml UDC PO PRN (12:46)
[2019-12-23] MEDS ORDERED: Levalbuterol HFA INHALER MDI INH PRN (12:54)
[2019-12-23] MEDS ORDERED: Lactated Ringers 1000 ml BAG 1,000 ML IV SCH (13:00)
[2019-12-23] MEDS: fentaNYL 100 mcg/2 ml 50 MCG/ML VIAL IV PRN ×2 (13:02→14:02)
[2019-12-23] MEDS ORDERED: Scopolamine PATCH Remove NOTE PATCH OFF PRN (16:46)
[2019-12-23] MEDS: ceFAZolin 1 GM ADVAN 1 GM in NS 0.9% 50 ML 50 ML IVPB SCH (17:57)
[2019-12-23] MEDS: oxyCODONE/Acetamin 5/325 mg TAB PO PRN (20:21)
[2019-12-23] MEDS: Magnesium Hydroxide LIQ 30 ML UDC PO SCH (20:23)
[2019-12-24] MEDS: ceFAZolin 1 GM ADVAN 1 GM in NS 0.9% 50 ML 50 ML IVPB SCH ×2 (01:52→09:30)
[2019-12-24] MEDS: oxyCODONE/Acetamin 5/325 mg TAB PO PRN ×3 (05:19→13:43)
[2019-12-24 05:42] LABS: Hematocrit 33 % (35-47); Mean Platelet Volume 8.7 fL (7.4-10.4); Platelet Count 322 10^3/uL (150-450)
[2019-12-24 06:00] LABS: BUN/Creatinine Ratio 16.9 (8-20); Calcium 9.1 mg/dL (8.6-10.3); EGFR Non-African American 63.7 (>60); Potassium 4.2 mmol/L (3.5-5.0)
[2019-12-24] MEDS ORDERED: NF:Olopatadine 0.1% OPHTH (NF) 1 DROP BTL BOTH EYES SCH (09:00)
[2019-12-24] MEDS ORDERED: Mometasone/Formoter 200/5 MDI INH SCH (09:00)
[2019-12-24] MEDS ORDERED: Vitamin THERAPEUTIC TAB PO SCH (09:00)
[2019-12-24] MEDS: Magnesium Hydroxide LIQ 30 ML UDC PO SCH (09:06)
[2019-12-24 11:46] VITALS: BP 136/58
[2019-12-24] MEDS ORDERED: Morphine 2 MG/ML SYRINGE IV PRN (12:15)
== END 2019-12-24 14:45 | disposition home or self-care (01) | DRG 470 ==
LOC: AA 07:23 → SSU 12:46
PROVIDERS: ADMIT Orthopaedic Surgery Adult Reconstructive Orthopaedic Surgery; ATTEND Orthopaedic Surgery Adult Reconstructive Orthopaedic Surgery